=== PATIENT | male | born 1980 | race Caucasian/White ===

== ENCOUNTER 2017-04-21 17:31 | Observation (INO) ==
[2017-04-21] MEDS ORDERED: DUONEB (A & A) INH ONE (18:19)
[2017-04-21] MEDS ORDERED: SOLU-MEDROL IV ONE (18:19)
--- NOTE | 2017-04-21 18:26 | PROVIDER DOCUMENTATION ---
This chart was entered by Esme Garza Scribe, acting as scribe for Catrina Salas CRNP. HPI-Respiratory General - General Chief Complaint: Asthma Attack Stated Complaint: RESP. DISTRESS Time Seen by Provider: 04/21/17 18:17 Source: patient Allergies/Adverse Reactions: Patient Allergies Allergy/AdvReac Type Severity Reaction Status Date / Time No Known Allergies Allergy Verified 11/11/15 04:58 Home Medications: Home Medication List Medication Instructions Recorded Confirmed Last Taken Type Albuterol Sulfate Inhaler 1 puff IH DIRECTED 11/11/15 04/21/17 04/21/17 16: 30 History [Ventolin Hfa] Budesonide [Pulmicort] 0.5 mg INH RTBID #28 neb 11/11/15 04/21/17 04/21/17 16: 30 Rx Buprenorphine HCl/Naloxone HCl 1 each SL BID 11/11/15 04/21/17 1 Day Ago History [Suboxone 8 mg/2 mg Sl Film] Ibuprofen 800 mg PO TID PRN 11/11/15 04/21/17 2 Days Ago History Lorazepam [Ativan] 2 mg PO DAILY 11/11/15 04/21/17 1 Day Ago History Methocarbamol [Robaxin] 750 mg PO TID 11/11/15 04/21/17 2 Days Ago History Albuterol 2.5MG/Ipratrop 0.5MG 3 ml INH Q6H PRN PRN #1 pkg 04/21/17 Unknown Rx [Duoneb] Methylprednisolone [Medrol Dosepak] 4 mg PO DIRECTED #1 package 04/21/17 Unknown Rx - History of Present Illness-Resp Nature of Presenting Problem: 36 year old M presents to the ED with a cc of shortness of breath x3 days. Pt states that he has a long history of asthma. Pt states that his breathing treatments are not helping. Severity in ED: reports: mild Onset/Duration: reports: 3 days ago Timing: reports: still present Cough Quality/Degree: reports: no cough Current Respiratory Medication Therapy: Initiated see nurses note Associated Symptoms: reports: shortness of breath Similar Symptoms Previously?: No Recently seen or treated by another doctor?: No Review of Systems - Adult - REVIEW OF SYSTEMS - ADULT Constitutional: reports: see HPI. denies: chills, fever, fatique Eyes: reports: see HPI. denies: discharge, blurred vision, double vision Ears, Nose, Mouth & Throat: reports: see HPI. denies: ear pain, sinus problem, mouth/dental pain, throat swelling Cardiovascular: reports: see HPI. denies: chest pain, irregular heart rate, palpitations, syncope Respiratory: reports: see HPI, shortness of breath. denies: cough, dyspnea on exertion, wheezing Gastrointestinal: reports: see HPI. denies: abdominal pain, diarrhea, nausea, vomiting Genitourinary: reports: see HPI. denies: dysuria, hematuria, hesitency, incontinence, urgency Musculoskeletal: reports: see HPI. denies: bone pain, joint pain, muscle aches , neck pain Integumentary: reports: see HPI. denies: hives, itching, rash, skin thickening Neurological: reports: see HPI. denies: ataxia, paresthesia, slurred speech, tremors Psychiatric: reports: see HPI. denies: anxiety, depression, emotional problems , insomnia, panic attacks, suicidal thoughts Past History - Adult - PAST MEDICAL HISTORY-ADULT Review of Records: reports: Old Records Reviewed, Nursing Assessment Review, Medications Reviewed, Social history reviewed & non-contributory. Major Childhood Illnesses: reports: denies history Cardiovascular: reports: denies history Respiratory: reports: asthma Gastrointestinal: reports: denies history Obstetrical/Gynecological: reports: denies history Genitourinary: reports: denies history Musculoskeletal: reports: denies history Neurological: reports: denies history Endocrine/Immune: reports: denies history Other Conditions: reports: denies history - FAMILY HISTORY Family History: reviewed, not pertinent - SOCIAL HISTORY Smoking: cigarettes, greater than 1 pack/day Provider spent 3-5 mins advising pt. on dangers of tobacco.: Discussed the need to stop smoking. Physical Exam-General - PHYSICAL EXAM-ADULT Initial Vital Signs Reviewed: Yes - CONSTITUTIONAL General Appearance: alert, mild distress, thin. negative: anxious, lethargic, slow to respond, obtunded, combative - EYES Eyes: PERRL/EOMI, pink conjunctivae. negative: conjuctival exudate, photophobia , subconjunctival hemorrhage - HEAD, EARS, NOSE, MOUTH & THROAT HENMT: normocephalic/atraumatic, moist mucous membranes. negative: angioedema, frontal tenderness, maxillary tenderness - NECK Neck: non-tender, full range of motion, supple. negative: lymphadenopathy, trachial deviation, thyromegaly - RESPIRATORY Respiratory: wheezing (bilaterally inspiratory and expiratory) - CARDIOVASCULAR Cardiovascular: normal peripheral pulses, regular rate, rhythm, no edema, no JVD , no murmur. negative: extra beats, friction rub, irregularly irregular - GASTROINTESTINAL (ABDOMEN) Abdominal Exam: normal bowel sounds, non tender, soft. negative: distended, guarding, rigid, rebound, tenderness, hernia, mass - LYMPHATIC Lymphatic: no adenopathy. negative: axilla node tender, cervical node tenderness - MUSCULOSKELETAL Back Exam: normal inspection, no CVA tenderness, no vertebral tenderness. negative: ecchymosis, swelling, vertebral tenderness Extremity: normal range of motion, non-tender, normal gait, normal inspection. negative: deformity, erythema, inflammation, swelling, tenderness Peripheral Pulses: radial (R): 2+, radial (L): 2+ - SKIN Integumentary: normal color, normal turgor, warm/dry. negative: cyanosis, diaphoresis, ecchymosis, erythema, jaundice, mottled, pallor, petechiae, purpura , rash, swelling, tenderness - NEUROLOGIC Neurologic: grossly normal, no motor/sensory deficits. negative: facial droop, focal weakness, motor weakness, sensory deficit - PSYCHIATRIC Psych/Mental Status: normal mood/affect, normal thought content, normal thought process, oriented x 3. negative: anxious, paranoid, tearful Progress - PLAN OF CARE/RESULTS Progress/Plan/Lab Results: Vital Signs - 8 hr 04/21/17 17:35 04/21/17 18:43 Temperature 97.0 F L Pulse Rate 89 86 Respiratory Rate 22 18 Blood Pressure 107/70 O2 Sat by Pulse Oximetry 91 L 90 L Orders Category Date Time Status Saline Loc NOW Care 04/21/17 18:19 Active CHEST-2 VIEWS [RAD] Stat Exams 04/21/17 18:20 Completed Albuterol 2.5MG/Ipratrop 0.5MG [Duoneb (A & A)] Med 04/21/17 18:19 Discontinued 6 ml INH NOW ONE Methylprednisolone Sod Succ [Solu-Medrol] Med 04/21/17 18:19 Discontinued 125 mg IV NOW ONE Aerosol Treatments Routine Oth 04/21/17 18:19 Active Aerosol Treatments Stat Oth 04/21/17 18:19 Active Discussed results and plan of care with patient. Patient agrees with plan and verbalizes understanding. - XRAY 1 XRAY Study: Chest XRAY Interpretation: The lungs are very hyperexpanded but no pneumonia per radiology Departure - Departure Date of Disposition Decision: 04/21/17 Time of Disposition Decision: 19:26 DIAGNOSIS: Asthma exacerbation Disposition: HOME 01 Certified Medical Emergency: Emergent Condition: Stable Additional Freetext Instructions: Follow up with primary care physician Stop smoking Take medications as directed Return to ED for any concerns or worsening of symptoms ED Follow Up Instructions: You have been treated by a care provider in the Emergency Department. These instructions are being provided to you so you can have an understanding of how to care for yourself upon discharge. Upon discharge from the Emergency Department, you are responsible for making arrangements for follow-up care by a physician of your choice. Take all prescribed medications as directed. Return to the Emergency Department immediately for any new or worsening symptoms. You may call the Physician Referral phone number at [phone] to obtain a list of Physicians who are taking new patients. Prescriptions: Albuterol 2.5MG/Ipratrop 0.5MG [Duoneb] 3 ml INH Q6H PRN PRN #1 pkg PRN Reason: Shortness Of Breath Methylprednisolone [Medrol Dosepak] 4 mg PO DIRECTED #1 package Work Excuses: Return to School/Parent Work Discharge Education: Asthma, Adult - Critical Care Note This patient required my direct & personal management of CC.: No Attestation - Physician/ SANDEEP Attestation Patient care was provided by Advanced Practice Provider:: Yes Advanced Practice Provider:: Catrina Salas (The physician is on site and available for consultation but did not have face to face contact with the patient. ) Advanced Practice Provider documentation review:: The Mid-level provider documentation, treatment plan and medical decision making was reviewed by the physician who agrees with all treatment and medical decision making by the MLP. This chart was documented by the indicated scribe, (Esme Garza Scribe) and accurately reflects the services I performed and decisions made by me, Catrina Salas CRNP, as attested by the provider's signature.
--- NOTE | 2017-04-21 18:39 | Diag Imaging Result Doc PS360 ---
EXAM: CHEST-2 VIEWS HISTORY: SOB TECHNIQUE: COMPARISON: 11/11/2015 FINDINGS: The lungs are hyperexpanded. There is an increased AP diameter to the chest. Heart is not enlarged. The pulmonary vessels are small. No pneumonia. No pleural effusions. IMPRESSION: Hyperexpanded lungs, but no pneumonia. Electronically signed by Tereso Christensen 04/21/2017 6:36 PM
[2017-04-21 20:10] LABS: BE 1.9 mmoll (-3.0-3.0); BLOOD TYPE ARTERIAL; DRAW SITE R RADIAL; METHB 1.1 % (0.0-1.5); O2(CT) 19.8 mL/dL (15.0-23.0); PCO2(98.6) 31 mmHg (35-45); SAMPLE BLOOD; SAO2 91.9 % (95.0-100.0); THB 15.9 g/dL (11.5-17.4)
[2017-04-21 20:13] LABS: PO2(98.6) 48 mmHg (60-100)
[2017-04-21 20:14] LABS: ALLEN TEST YES; MODALITY ROOM AIR
[2017-04-21] MEDS ORDERED: MEDROL PO SCH (20:45)
[2017-04-21] MEDS: LEVAQUIN 750 MG/D5W 750 MG/150 ML IVPB IV SCH (20:45)
[2017-04-21 21:03] LABS: MANUAL DIFF NEEDED? NO
[2017-04-21 21:04] LABS: BASO% 0.2 % (0.0-0.8); EOS# 0.25 X1000 (0.0-0.7); EOS% 1.8 % (0.0-10.0); HEMATOCRIT 45.4 % (42.0-52.0); HEMOGLOBIN 15.1 g/dL (14.0-18.0); IMM GRAN# 0.02 X1000 (0.0-0.04); IMM GRAN% 0.1 % (0.0-0.5); LYMPH# 1.61 X1000 (1.2-3.4); LYMPH% 11.7 % (20.5-51.1); MCH 29.3 PG (27-31); MCHC 33.3 g/dL (33-37); MCV 88.2 FL (81-99); MONO# 0.88 X1000 (0.11-0.59); MONO% 6.4 % (1.7-9.3); MPV 11.3 FL (7.4-10.4); NEUT% 79.8 % (42.2-75.2); PLT 181 X1000 (130-400); RBC 5.15 XMIL (4.7-6.1)
[2017-04-21 21:31] LABS: AGAP 10; ALBUMIN 4.2 g/dL (3.5-5.0); ALKALINE PHOSPHATASE 73 U/L (32-122); BUN 8 mg/dL (8-22); CHLORIDE 100 mmol/L (98-107); COSMO 272; GOT 12 U/L (10-34); GPT 9 U/L (10-44); POTASSIUM 3.7 mmol/L (3.5-5.1); SODIUM 136 mmol/L (136-145); TCO2 26 mmol/L (25-35); TOTAL PROTEIN 7.4 g/dL (6.3-8.3)
[2017-04-21] MEDS ORDERED: SOLU-MEDROL ONE (21:40)
[2017-04-21] MEDS: DUONEB (A & A) INH SCH (22:56)
[2017-04-22] MEDS: DUONEB (A & A) INH SCH ×6 (04:02→22:59)
[2017-04-22] MEDS: SOLU-MEDROL IV SCH ×3 (05:54→23:23)
[2017-04-22] MEDS ORDERED: DUONEB (A & A) INH PRN (08:13)
--- NOTE | 2017-04-22 09:32 | HISTORY AND PHYSICAL ---
PRIMARY CARE PHYSICIAN: None. CHIEF COMPLAINT: Shortness of breath. HISTORY OF PRESENT ILLNESS: The patient reports 2 days prior to arrival he began having shortness of breath and nonproductive cough. He does have a history of asthma. He reports he usually has one episode of severe asthma a year. He takes albuterol inhaler and nebulizers p.r.n. but nothing preventatively daily. He also continues to smoke a half a pack a day and has done so for the last 15 years. He denies any fever or chills. He denies any additional symptoms. He will be admitted for further treatment and evaluation. PAST MEDICAL HISTORY: 1. Asthma. 2. Sleep apnea. 3. Chronic back pain. 4. Anxiety. PAST SURGICAL HISTORY: Start teeth extraction. SOCIAL HISTORY: Patient smokes a half a pack a day and has done so for 15 years. He reports occasional alcohol use. He denies any drug use. FAMILY HISTORY: Positive for coronary artery disease with both of his parents. ALLERGIES: No known drug allergies. MEDICATIONS: We are planning to verify this with the pharmacy that he uses as well due to him reporting he has no primary care. 1. Albuterol p.r.n. wheezing. 2. Robaxin 750 mg p.o. t.i.d. 3. Ativan 2 mg p.o. daily. 4. Ibuprofen 800 mg p.o. t.i.d. p.r.n. 5. Suboxone 8 mg b.i.d. 6. DuoNeb q.6 hours p.r.n. wheezing. REVIEW OF SYSTEMS: Ten-point review of systems negative other than previously stated in the HPI. LABORATORIES AND DIAGNOSTICS: CBC: White count 13.76, hemoglobin and hematocrit 15.1 and 45.4, platelets 181,000. BMP: Sodium 136, potassium 3.7, chloride 100, CO2 of 26. BUN 8, creatinine 0.6, glucose 128. LFTs within normal limits. ABGs: pH 7.5, pCO2 of 31, PO2 of 48, bicarb 26.8, oxyhemoglobin 88.8. Chest x-ray shows hyperexpanded lungs. No other abnormality. PHYSICAL EXAMINATION: VITAL SIGNS: Temperature 97.6 degrees, pulse 88, respirations 18, blood pressure 123/61, O2 saturation 98% on 4 L per nasal cannula. HEENT: Normocephalic, atraumatic. Mucous membranes moist. NECK: Supple. No JVD. CHEST: Bilateral breath sounds with moderate wheezing. No accessory muscle use noted. CARDIOVASCULAR: Normal S1, S2. ABDOMEN: Abdomen is soft, nontender. EXTREMITIES: No evidence of clubbing, cyanosis, or edema. NEUROLOGIC: Alert and oriented x4. No neurological deficits noted. ASSESSMENT AND PLAN: 1. Asthma exacerbation. We will continue with steroids and DuoNebs q.4-6 hours as well as q. 2 hours p.r.n. and oxygen supportively. 2. Chronic pain. We will give Robaxin t.i.d. and will verify his other medications with the pharmacy. Further orders pending physician evaluation. Patient seen and Examined, I agree with Shruthi Smith assessment and plan, Dr Saleh Dictated by ADAN Hebert for Willian Cowan MD cc: ADAN Hebert MD [facility]
[2017-04-22] MEDS ORDERED: SUBOXONE 8 MG/2 MG SL ONE (13:18)
[2017-04-22] MEDS: ROBAXIN PO SCH ×2 (13:28→20:53)
[2017-04-22] MEDS: LEVAQUIN 750 MG/D5W 750 MG/150 ML IVPB IV SCH (20:53)
[2017-04-22] MEDS: SUBOXONE 8 MG/2 MG SL SCH (20:54)
[2017-04-22] MEDS ORDERED: ATIVAN PO SCH (21:00)
[2017-04-23] MEDS: DUONEB (A & A) INH SCH ×2 (03:16→07:44)
[2017-04-23] MEDS: SOLU-MEDROL IV SCH (05:59)
[2017-04-23] MEDS: ROBAXIN PO SCH ×2 (05:59→12:48)
[2017-04-23 06:42] LABS: EOS# 0.01 X1000 (0.0-0.7); EOS% 0.1 % (0.0-10.0); HEMATOCRIT 45.7 % (42.0-52.0); HEMOGLOBIN 14.8 g/dL (14.0-18.0); IMM GRAN# 0.02 X1000 (0.0-0.04); IMM GRAN% 0.1 % (0.0-0.5); LYMPH# 0.82 X1000 (1.2-3.4); LYMPH% 5.3 % (20.5-51.1); MANUAL DIFF NEEDED? YES; MCH 28.8 PG (27-31); MCHC 32.4 g/dL (33-37); MCV 89.1 FL (81-99); MONO# 0.56 X1000 (0.11-0.59); MONO% 3.6 % (1.7-9.3); MPV 12.1 FL (7.4-10.4); NEUT% 90.9 % (42.2-75.2); PLT 172 X1000 (130-400); RBC 5.13 XMIL (4.7-6.1)
[2017-04-23 06:59] LABS: AGAP 12; BUN 15 mg/dL (8-22); CALCIUM 8.9 mg/dL (8.8-10.2); CHLORIDE 101 mmol/L (98-107); COSMO 277; POTASSIUM 4.5 mmol/L (3.5-5.1); SODIUM 137 mmol/L (136-145); TCO2 24 mmol/L (25-35)
[2017-04-23 07:22] LABS: BANDS 1 % (0-1); LYMPHS 3 % (21-51); MONO 1 % (1-9)
[2017-04-23] MEDS: SUBOXONE 8 MG/2 MG SL SCH (09:07)
[2017-04-23] MEDS ORDERED: ALBUTEROL NEB INH PRN (11:08)
[2017-04-23] MEDS ORDERED: MEDROL PO ONE (11:15)
[2017-04-23 11:19] VITALS: BP 106/58
[2017-04-23] MEDS ORDERED: MEDROL PO SCH ×3 (13:00→21:00)
--- NOTE | 2017-04-24 04:49 | DISCHARGE SUMMARY ---
ADMISSION DATE: 04/21/2017 DISCHARGE DATE: 04/23/2017 PRIMARY CARE PHYSICIAN/FAMILY PHYSICIAN: Ashli Issa MD. ADMISSION DIAGNOSES: 1. Asthma exacerbation. 2. Chronic pain. DISCHARGE DIAGNOSES: 1. Asthma exacerbation, resolved. 2. Chronic pain. 3. Sleep apnea. 4. History of anxiety. SUMMARY OF FINDINGS: This is a 36-year-old male who presents with a 2-day history of shortness of breath and a nonproductive cough. States that he usually has 1 episode of severe asthma a year. Takes an albuterol inhaler and nebulizers p.r.n. but nothing preventatively daily. He also continues to smoke a half a pack of cigarettes and has done so for the past 15 years. He was admitted, placed on steroids and DuoNeb routinely as well as q.2 hours p.r.n., O2 per protocol. He is much improved today, saturating 94% on room air. States he is feeling much better and so it is felt that he can safely be discharged home today. He will continue home medications of Suboxone 8 mg/2 mg 1 sublingually b.i.d., Ativan 2 mg p.o. daily, Robaxin 750 mg p.o. t.i.d. He will continue his albuterol nebulizers q.4 hours p.r.n. and DuoNeb q.6 hours p.r.n., 1 package with 1 refill, his Ventolin inhaler as directed, ibuprofen 800 mg p.o. t.i.d., and a Medrol Dosepak to take as directed, #1 package with no refills. FOLLOWUP: He will need to follow up with his primary care physician in 1-2 weeks. DISCHARGE INSTRUCTIONS: We discussed smoking cessation with this patient and he verbalized understanding. A 35 minute discharge. Dictated by ADAN Malik for Willian Cowan MD cc: ADAN Malik MD Tiffany Hendricks, MD
[2017-04-24] MEDS ORDERED: MEDROL PO SCH (09:00)
[2017-04-25] MEDS ORDERED: MEDROL PO SCH (21:00)
== END 2017-04-23 14:30 | disposition home or self-care (01) ==
LOC: P.MEDSURG 17:31 → P.ED 17:31 → SUATTDRO 17:32
PROVIDERS: ATTEND Internal Medicine

== ENCOUNTER 2019-04-05 04:32 | Inpatient (IN) ==
[2019-04-05] MEDS ORDERED: DUONEB (A & A) INH ONE ×2 (04:38→07:56)
[2019-04-05] MEDS ORDERED: PREDNISONE PO ONE (04:38)
--- NOTE | 2019-04-05 04:41 | PROVIDER DOCUMENTATION ---
HPI-General Adult - General Chief Complaint: Asthma Attack Stated Complaint: Asthma Time Seen by Provider: 04/05/19 04:36 Source: patient Allergies/Adverse Reactions: Patient Allergies Allergy/AdvReac Type Severity Reaction Status Date / Time latex Allergy ITCHING Verified 04/05/19 04:49 Home Medications: Home Medication List Medication Instructions Recorded Confirmed Last Taken Type Albuterol Sulfate Inhaler 2 puff IH DIRECTED PRN 11/11/15 04/05/19 07/06/18 01:00 History [Ventolin Hfa] Buprenorphine HCl/Naloxone HCl 1 film SL BID 01/24/19 04/05/19 Unknown History [Suboxone 8 mg/2 mg Sl Film] Dextroamphetamine/Amphetamine 50 mg PO DAILY 01/24/19 04/05/19 Unknown History [Mydayis ER 50 mg Capsule] Ibuprofen 800 mg PO BID PRN 01/24/19 04/05/19 Unknown History Lorazepam 2 mg PO DAILY 01/24/19 04/05/19 Unknown History Methocarbamol 1 tab PO TID 01/24/19 04/05/19 Unknown History Albuterol 2.5MG/Ipratrop 0.5MG 3 ml INH Q6H PRN PRN 04/05/19 04/05/19 Unknown History [Duoneb (A & A)] - History of Present Illness -Gen Adult Nature of Presenting Problems: Pt presents with asthma exacerbation, x 1 day, says the humidity/air triggers it, mild cough, active smoker, tried albuterol inhaler at home with minimal relief, pt denies f/c, shields, cp, ap, n/v/d. Pt is lying in bed in no acute distress. Location of Pain/Injury: reports: none Pain Radiation: reports: no radiation Quality of Pain: reports: none Severity: reports: mild Onset/Duration: reports: 24 hours ago Timing: reports: still present Context/Activities at Onset: reports: none Modifying Factors: improves with: nothing Associated Symptoms: reports: cough, shortness of breath Similar Symptoms Previously?: Yes Recently seen or treated by another doctor?: No Review of Systems - Adult - REVIEW OF SYSTEMS - ADULT Constitutional: reports: no symptoms reported Eyes: reports: no symptoms reported Ears, Nose, Mouth & Throat: reports: no symptoms reported Cardiovascular: reports: no symptoms reported Respiratory: reports: see HPI Gastrointestinal: reports: no symptoms reported Genitourinary: reports: no symptoms reported Musculoskeletal: reports: no symptoms reported Integumentary: reports: no symptoms reported Neurological: reports: no symptoms reported Psychiatric: reports: no symptoms reported Endocrine: reports: no symptoms reported Hematologic/Lymphatic: reports: no symptoms reported Allergic/Immunologic: reports: no symptoms reported All Other Systems: Reviewed and Negative Past History - Adult - PAST MEDICAL HISTORY-ADULT Review of Records: reports: Old Records Reviewed, Nursing Assessment Review, Medications Reviewed, Social history reviewed & non-contributory. Major Childhood Illnesses: reports: denies history Cardiovascular: reports: denies history Respiratory: reports: asthma (Has been intubated in the past), pneumonia Gastrointestinal: reports: denies history Obstetrical/Gynecological: reports: denies history Genitourinary: reports: denies history Musculoskeletal: reports: denies history Neurological: reports: denies history Psychiatric: reports: anxiety Endocrine/Immune: reports: denies history Other Conditions: reports: denies history, other (Chronic pain, opioid dependence) - PRIOR SURGERIES/PROCEDURES Surgical/Procedure History: reports: none - IMMUNIZATION STATUS Childhood Immunizations: UTD Flu Vaccine: NUTD - FAMILY HISTORY Family History: reviewed, not pertinent Physical Exam-General - PHYSICAL EXAM-ADULT Initial Vital Signs Reviewed: Yes - CONSTITUTIONAL General Appearance: appears well - EYES Eyes: PERRL/EOMI - HEAD, EARS, NOSE, MOUTH & THROAT HENMT: normal ENT inspection - NECK Neck: normal inspection - RESPIRATORY Respiratory: respiratory distress (mild), wheezing - CARDIOVASCULAR Cardiovascular: regular rate, rhythm - GASTROINTESTINAL (ABDOMEN) Abdominal Exam: normal bowel sounds, non tender, soft - LYMPHATIC Lymphatic: no adenopathy - MUSCULOSKELETAL Back Exam: normal inspection Extremity: normal range of motion - SKIN Integumentary: normal color - NEUROLOGIC Neurologic: grossly normal - PSYCHIATRIC Psych/Mental Status: normal mood/affect Progress - PLAN OF CARE/RESULTS Progress/Plan/Lab Results: Orders Category Date Time Status Albuterol 2.5MG/Ipratrop 0.5MG [Duoneb (A & A)] Med 04/05/19 04:38 Once 9 ml INH NOW ONE Prednisone Med 04/05/19 04:38 Once 60 mg PO NOW ONE Aerosol Treatments Routine Oth 04/05/19 04:38 Ordered Aerosol Treatments Stat Oth 04/05/19 04:38 Ordered Result Diagrams: 04/05/19 05:57 Departure - Departure Date of Disposition Decision: 04/05/19 Time of Disposition Decision: 06:20 DIAGNOSIS: Asthma exacerbation Qualifiers: Asthma severity: moderate Asthma persistence: persistent Qualified Code(s): J45.41 - Moderate persistent asthma with (acute) exacerbation Disposition: ADMITTED INPATIENT 09 Certified Medical Emergency: Emergent Condition: Stable Referrals and Follow-Ups: None,PCP [NON-STAFF PROVIDER] - - Critical Care Note This patient required my direct & personal management of CC.: No Attestation - Physician/ SANDEEP Attestation Patient care was provided by Advanced Practice Provider:: No The physician spent face to face time with patient:: Yes Advanced Practice Provider documentation review:: Supervising physician onsite and consulted in the evaluation and care of this patient. The physician did have a face to face encounter with the patient.
[2019-04-05] MEDS ORDERED: MAGNESIUM SULFATE 2 GM/S.W.I. 2 GM/50 ML IVPB IV ONE (05:07)
[2019-04-05] MEDS ORDERED: ATIVAN IV ONE (05:07)
[2019-04-05] MEDS ORDERED: EPINEPHRINE IM ONE (05:07)
[2019-04-05] MEDS ORDERED: ATIVAN ONE (05:11)
[2019-04-05] MEDS ORDERED: EPINEPHRINE ONE (05:11)
[2019-04-05 05:46] LABS: ALLEN TEST YES; BE -3.6 mmoll (-3.0-3.0); BLOOD TYPE ARTERIAL; HCO3-(ACT) 22.1 mmoll (20.0-26.0); METHB 1.4 % (0.0-1.5); O2(CT) 20.9 mL/dL (15.0-23.0); PO2(98.6) 114 mmHg (60-100); SAMPLE BLOOD; SAO2 99.2 % (95.0-100.0); THB 15.4 g/dL (11.5-17.4)
[2019-04-05 05:47] LABS: MODALITY HIGH FLOW NASAL CAN; PCO2(98.6) 67 mmHg (35-45)
[2019-04-05 06:10] LABS: BASO# 0.04 X1000 (0.0-0.2); BASO% 0.3 % (0.0-0.8); EOS# 0.86 X1000 (0.0-0.7); EOS% 5.9 % (0.0-10.0); HEMATOCRIT 44.7 % (42.0-52.0); HEMOGLOBIN 14.8 g/dL (14.0-18.0); IMM GRAN# 0.03 X1000 (0.0-0.04); IMM GRAN% 0.2 % (0.0-0.5); LYMPH# 1.95 X1000 (1.2-3.4); LYMPH% 13.3 % (20.5-51.1); MCH 28.8 PG (27-31); MCHC 33.1 g/dL (33-37); MONO# 0.75 X1000 (0.11-0.59); MONO% 5.1 % (1.7-9.3); MPV 11.3 FL (7.4-10.4); NEUT# 11.04 X1000 (1.4-6.5); NEUT% 75.2 % (42.2-75.2); PLT 184 X1000 (130-400); RBC 5.14 XMIL (4.7-6.1); RDW 15.1 % (11.5-14.5); WBC 14.67 X1000 (4.8-10.8)
[2019-04-05 06:28] LABS: AGAP 13; ALB/GLOB RATIO 1.3; ALBUMIN 4.3 g/dL (3.5-5.0); ALKALINE PHOSPHATASE 85 U/L (32-122); BUN 6 mg/dL (8-22); CALCIUM 8.4 mg/dL (8.8-10.2); CHLORIDE 102 mmol/L (98-107); COSMO 278; CREATININE 0.7 mg/dL (0.7-1.2); ESTIMATED GFR > 60; GLUCOSE 150 mg/dL (70-104); GOT 26 U/L (10-34); GPT 22 U/L (10-44); POTASSIUM 3.9 mmol/L (3.5-5.1); SODIUM 139 mmol/L (136-145); TCO2 24 mmol/L (25-35); TOTAL BILIRUBIN 0.33 mg/dL (0.20-1.00); TOTAL PROTEIN 7.5 g/dL (6.3-8.3)
--- NOTE | 2019-04-05 06:44 | Diag Imaging Result Doc PS360 ---
CHEST-1 VIEW - 04/05/2019 INDICATION: sob COMPARISON: 01/25/2019 FINDINGS: Lungs are hyperexpanded compatible with COPD. Heart size and pulmonary vascularity are normal. No infiltrates or edema. No large pleural effusion. IMPRESSION: COPD. Electronically signed by Dakota Langford 04/05/2019 6:42 AM
[2019-04-05 07:42] LABS: ALLEN TEST YES; BE -1.7 mmoll (-3.0-3.0); BLOOD TYPE ARTERIAL; HCO3-(ACT) 23.6 mmoll (20.0-26.0); METHB 1.2 % (0.0-1.5); O2(CT) 20.8 mL/dL (15.0-23.0); PO2(98.6) 127 mmHg (60-100); SAMPLE BLOOD; SAO2 99.7 % (95.0-100.0); THB 15.1 g/dL (11.5-17.4)
[2019-04-05 08:10] LABS: MODALITY HIGH FLOW NASAL CAN; PCO2(98.6) 52 mmHg (35-45)
[2019-04-05] MEDS ORDERED: DUONEB (A & A) INH PRN (09:14)
[2019-04-05] MEDS ORDERED: VENTOLIN HFA INH PRN (09:14)
[2019-04-05] MEDS ORDERED: ATIVAN PO SCH (09:14)
[2019-04-05] MEDS ORDERED: MOTRIN PO PRN (09:14)
[2019-04-05] MEDS: SOLU-MEDROL IV SCH ×2 (10:03→16:58)
[2019-04-05] MEDS ORDERED: NS 500 ML ONE (10:17)
[2019-04-05] MEDS ORDERED: DIPRIVAN 1% 1,000 MG/100 ML BOTTLE ONE (10:20)
[2019-04-05] MEDS ORDERED: DIPRIVAN 1% ONE (10:22)
[2019-04-05] MEDS ORDERED: QUELICIN (DOSE) ONE (10:23)
[2019-04-05] MEDS: ROBAXIN PO SCH ×3 (10:24→16:33)
[2019-04-05] MEDS: SUBOXONE 8 MG/2 MG SL SCH ×2 (10:25→21:30)
[2019-04-05] MEDS: DUONEB (A & A) INH SCH ×4 (10:41→23:03)
[2019-04-05] MEDS: DIPRIVAN 1% 1,000 MG/100 ML BOTTLE IV SCH ×5 (10:43→21:32)
--- NOTE | 2019-04-05 10:46 | Diag Imaging Result Doc PS360 ---
CHEST-PORTABLE - 04/05/2019 10:35 AM INDICATION: intubation COMPARISON: 5:43 AM FINDINGS: There is an endotracheal tube in good position at T2-T3. Lungs are hyperexpanded but clear. Heart size is normal. No pneumothorax or pleural effusion. IMPRESSION: Good endotracheal tube placement. Electronically signed by Dakota Langford 04/05/2019 10:43 AM
[2019-04-05 11:52] LABS: BILIRUBIN URINE NEGATIVE (NEGATIVE); BLOOD URINE NEGATIVE (NEGATIVE); COLOR YELLOW; GLUCOSE URINE NEGATIVE (NEGATIVE); KETONE URINE NEGATIVE (NEGATIVE); LEUKOCYTES URINE NEGATIVE (NEGATIVE); NITRITE URINE NEGATIVE (NEGATIVE); PROTEIN URINE TRACE mg/dL (NEGATIVE); SP GRAVITY URINE 1.018; TURBIDITY URINE CLEAR (CLEAR); URINE SOURCE CATH; UROBILINOGEN URINE NORMAL (NORMAL)
[2019-04-05 11:54] LABS: UR EPITHELIAL CELLS <10 /HPF (<10); URINE BACTERIA NEGATIVE /HPF; URINE RBC <10 /HPF (<10); URINE WBC <10 /HPF (<10)
--- NOTE | 2019-04-05 13:03 | HISTORY AND PHYSICAL ---
PRIMARY CARE PHYSICIAN: Marilee Patrick CHIEF COMPLAINT: 24 hour history of asthma exacerbation triggered by humidity and air with mild cough, minimal relief from albuterol inhaler at home, and is an active smoker. HISTORY OF PRESENTING ILLNESS: This is a 38-year-old male who presented to [facility] after a one day history of an asthma exacerbation. He states that the humidity and air triggered the exacerbation with a mild cough. He tried his albuterol inhaler at home with minimal relief, and continues to be a half a pack a day smoker. When he arrived, his white blood cell count was 14.67. ABG with a pH of 7.20, pCO2 67, PO2 114, and this was on high-flow nasal cannula at 60%. The patient refused BiPAP. Repeated blood gases 2 hours later with improvement showing a pH of 7.30, pCO2 of 52, and PO2 127 on the same high-flow nasal cannula FiO2 60%. He is saturating 99% at this time. His chest x-ray showed COPD so he is going to be admitted to the intensive care unit for further evaluation and treatment. PAST MEDICAL HISTORY: Allergic rhinitis, asthma requiring intubation in the past, and chronic pain with opioid dependence. PAST SURGICAL HISTORY: None. FAMILY HISTORY: Reviewed and noncontributory. SOCIAL HISTORY: Currently lives with family. Smokes a half a pack of cigarettes a day. Drinks 1 to 2 beers a month. Denied any illicit drug use. ALLERGIES: Latex. HOME MEDICATIONS: Reviewed and restarted as appropriate. LABORATORY DATA: White blood cell count of 14.67, hemoglobin 14.8, hematocrit 44.7, and platelets 184,000. ABG on arrival with a pH of 7.20, pCO2 67, PO2 114, and bicarb 22.1 on a high-flow nasal cannula at 60% FiO2. Again, he refused BiPAP. Repeat 2 hours later showed a pH of 7.30, pCO2 of 52, PO2 127, bicarb 23.6 on the same high-flow nasal cannula, and FiO2 60%. Sodium 139, potassium 3.9, chloride 102, CO2 24, BUN of 6, creatinine 0.7, and glucose of 150. Chest x-ray showed COPD. REVIEW OF SYSTEMS: He denied any fever, chills, blurred vision, dizziness, or chest pain. He had a mild cough, shortness of breath, wheezing, and increased work of breathing. Denied any abdominal pain, constipation, diarrhea, burning or hurting with urination. PHYSICAL EXAMINATION: VITAL SIGNS: On arrival, he had a temperature of 98.1 degrees, pulse was 130, and respirations 26. After treatment, they calmed down about 5 minutes later to a pulse of 91, respirations of 11, blood pressure 128/79 and saturating 96%, currently 99% on high-flow nasal cannula. GENERAL: This is a 38-year-old male who is sitting up in the bed and answers questions appropriately with mostly yes and no answers with increased work of breathing noted and shortness of breath while talking so limited the amount of questions that were asked at this time. HEENT: Normocephalic, atraumatic. Normal ENT inspection. Oropharynx and nares are clear. EYES: Pupils are equal, round, and reactive to light and accommodation. Extraocular movements are intact. NECK: Normal inspection. Normal range of motion. LUNGS: Wheezing throughout entire posterior lung devi. Equal lung expansion. Chest wall movement noted. Some accessory muscle use noted at times, but not consistently with some increased work of breathing that has improved. ABDOMEN: Soft, nontender, and nondistended. Bowel sounds are present x4 quadrants. MUSCULOSKELETAL: 5/5 strength x4 extremities. NEUROLOGICAL: The cranial nerves 2-12 appear grossly intact. ASSESSMENT: 1. Acute asthma exacerbation. 2. Acute hypercapnic respiratory failure. 3. Leukocytosis. 4. Tobacco abuse. PLAN: He will be admitted to the intensive care unit. We will continue his high-flow oxygen per protocol. DuoNeb q.4 hours and q.2 p.r.n. shortness of breath. He received a prednisone 60 mg p.o. x1 in the emergency room and some epinephrine 0.3 x 1. I am going to start him on Solu- Medrol 80 mg IV q.8 and wean as he improves peak flows and incentive spirometry. Recheck a CBC and BMP in the morning. Place on a regular diet. He was also in the emergency room, and given magnesium 2 g IV x1, Ativan 1 mg IV x1, and 9 mL inhalation of DuoNeb. Further orders after seen by attending. Dictated by ADAN Malik for Alejandro Vásquez MD Addendum: Patient seen and examined by myself. Agree with ADAN note. It reflects my assessment and plan. Patient is being admitted to hospital for acute respiratory failure secondary to asthma exacerbation. Patient looks to be on moderate to severe respiratory distress. His ABG showed respiratory acidosis that improved with Optiflow but he still looks tachypneic. He does not want to use Bipap because it does cause him to breath faster and he was made aware if he continues to be on respiratory distress next step is intubation. He agreed an actually he has been intubated before for same reason. Considering that he continues to deteriorate will intubate him now and consult Pulmonary . An ABG has been ordered two hours after procedure. Will monitor patient closelyl Critical care time of 45 minutes. cc: ADAN Malik MD Aletha Eddison MTDD
[2019-04-05] MEDS ORDERED: ZANTAC IV SCH (13:15)
[2019-04-05 13:26] LABS: ALLEN TEST YES; BE -3.3 mmoll (-3.0-3.0); BLOOD TYPE ARTERIAL; HCO3-(ACT) 22.3 mmoll (20.0-26.0); METHB 1.4 % (0.0-1.5); O2(CT) 21.7 mL/dL (15.0-23.0); O2HB 97.5 % (95.0-99.0); PO2(98.6) 265 mmHg (60-100); SAMPLE BLOOD; SAO2 99.7 % (95.0-100.0); SRATE 15 BPM; THB 15.4 g/dL (11.5-17.4); TVOL 500 mL
[2019-04-05 13:27] LABS: MODALITY VENTILATOR; PCO2(98.6) 68 mmHg (35-45)
[2019-04-05] MEDS: D5 NS 1,000 ML IV SCH (13:46)
[2019-04-05] MEDS: LOVENOX SUBQ SCH (13:46)
[2019-04-05 13:49] LABS: UR AMPHETAMINES QUAL PRESUMPTIVE POSITIVE (NONE DETECT); UR BARBITUATES QUAL NONE DETECTED (NONE DETECT); UR BENZODIAZEPIN QUAL NONE DETECTED (NONE DETECT); UR CANNABINOIDS QUAL PRESUMPTIVE POSITIVE (NONE DETECT); UR COCAINE QUAL NONE DETECTED (NONE DETECT); UR METHADONE QUAL NONE DETECTED (NONE DETECT); UR OPIATES QUAL NONE DETECTED (NONE DETECT); UR OXYCODONE QUAL NONE DETECTED (NONE DETECT); UR PCP QUAL NONE DETECTED (NONE DETECT)
[2019-04-05] MEDS: ZANTAC 50 MG in NS 50 ML IV SCH ×2 (14:50→21:31)
[2019-04-05] MEDS: ZITHROMAX 500 MG/NS 500 MG/250 ML IVPB IV SCH (14:50)
[2019-04-05] MEDS: MORPHINE IV PRN (15:52)
[2019-04-05 16:02] LABS: ALLEN TEST YES; BE -2.6 mmoll (-3.0-3.0); BLOOD TYPE ARTERIAL; HCO3-(ACT) 22.9 mmoll (20.0-26.0); METHB 1.3 % (0.0-1.5); O2(CT) 20.7 mL/dL (15.0-23.0); O2HB 96.9 % (95.0-99.0); PCO2(98.6) 57 mmHg (35-45); PO2(98.6) 146 mmHg (60-100); SAMPLE BLOOD; SAO2 99.4 % (95.0-100.0); TVOL 700 mL; pH(98.6) 7.26 (7.35-7.45)
[2019-04-05 16:03] LABS: MODALITY VENTILATOR
--- NOTE | 2019-04-05 23:34 | PULMONOLOGY CONSULTATION ---
DATE: 04/05/2019 REQUESTING PHYSICIAN: Dr. Hollis. REASON FOR CONSULTATION: Respiratory failure. HISTORY OF PRESENT ILLNESS: Mr. Mcclure is a 38-year-old white male with a long history of asthma, prior asthma exacerbation requiring intubation, ongoing tobacco use, who presented to the emergency room with a 1-day history of increasing shortness of breath. The patient appears to be on no chronic asthma medications except for albuterol when his medication list is reviewed and recent medications that have been filled at the pharmacy are also reviewed. The patient was initiated on treatment in the emergency room and transferred to the ICU. The patient was being observed by the nursing staff when he had progressive increasing work of breathing and actually requested to be intubated due to ongoing distress. The patient was intubated and initiated on mechanical ventilation. He is now sedated. He has mild work of breathing with evidence of prolonged expiratory phase. Peak pressures are less than 20 on current settings. PAST MEDICAL HISTORY/PROBLEM LIST: 1. Asthma with prior intubation. 2. Chronic pain syndrome, currently being managed with Suboxone. 3. Ongoing tobacco use. FAMILY HISTORY: Not immediately available. SOCIAL HISTORY: History of tobacco use, chronic pain use, current and previous urinalysis revealing amphetamines and cannabis. REVIEW OF SYSTEMS: Cannot be obtained. PHYSICAL EXAMINATION: General: Reveals an intubated, white male on mechanical ventilation. Vital signs: Blood pressure 105/66, heart rate 92, respiratory rate 12, oxygen saturation 99%. HEENT: Pupils are equal and reactive. Oropharynx is clear. Neck: Supple. Chest: Reveals markedly diminished breath sounds bilaterally with prolonged expiratory phase. Cardiac: S1, S2. Abdomen: Soft. Extremities: Without edema. LABORATORIES: Arterial blood gas in the emergency room upon presentation pH 7.20, pCO2 of 67, pO2 of 114. Arterial blood gas following intubation, pH 7.20, pCO2 of 68, pO2 of 265. Chest x-ray reveals hyperinflation, but no acute disease. Sodium 139, potassium 3.9, chloride 102, bicarbonate 24, BUN 6, creatinine 0.7. White blood count is 14.67 with an eosinophil percentage of 5.9, with a total eosinophil count of 860. The patient has had an eosinophil percentage as high as 9.6%. IMPRESSION: A 38-year-old with status asthmatic is, acute hypoxemic respiratory failure, acute hypercapnic respiratory failure, ongoing cigarette/tobacco use, cannabis use, who has required intubation for status asthmaticus. Review of medications on admission does not reveal long-term asthma medications. With prior intubation, patient should at a minimum be on a chronic inhaled corticosteroid. If he has failed inhaled corticosteroids, then he should be on other medications to control his eosinophilia. RECOMMENDATIONS: 1. Continue nebulizers and steroids for asthma exacerbation. 2. Continue mechanical ventilation for acute hypercapnic and acute hypoxemic respiratory failure. 3. Routine DVT prophylaxis. 4. Routine gastric acid suppression. 5. We will initiate azithromycin in the event that an atypical organism is driving the current presentation. 6. Smoking cessation will be discussed and recommended. 7. Inhaled corticosteroids will be discussed and recommended. 8. Daily weaning as tolerated given improvement in current pulmonary status. TOTAL TIME: Time spent in Critical care management 1 hour. cc: Yuriy Cloud MD
[2019-04-06] MEDS: SOLU-MEDROL IV SCH ×4 (01:34→23:32)
[2019-04-06] MEDS: DIPRIVAN 1% 1,000 MG/100 ML BOTTLE IV SCH ×9 (01:35→23:33)
[2019-04-06] MEDS: MORPHINE IV PRN ×3 (01:36→16:05)
[2019-04-06] MEDS: D5 NS 1,000 ML IV SCH ×2 (01:37→15:09)
[2019-04-06] MEDS: DUONEB (A & A) INH SCH ×6 (03:39→23:21)
[2019-04-06 04:40] LABS: ALLEN TEST YES; BE 0.9 mmoll (-3.0-3.0); BLOOD TYPE ARTERIAL; HCO3-(ACT) 25.6 mmoll (20.0-26.0); METHB 1.3 % (0.0-1.5); O2(CT) 19.5 mL/dL (15.0-23.0); O2HB 96.1 % (95.0-99.0); PO2(98.6) 96 mmHg (60-100); SAMPLE BLOOD; SAO2 98.8 % (95.0-100.0); SRATE 700 BPM; THB 14.4 g/dL (11.5-17.4); TVOL 12 mL; pH(98.6) 7.33 (7.35-7.45)
[2019-04-06 04:41] LABS: MODALITY VENTILATOR; PCO2(98.6) 53 mmHg (35-45)
[2019-04-06] MEDS: ZANTAC 50 MG in NS 50 ML IV SCH ×3 (05:11→21:52)
[2019-04-06 06:22] LABS: HEMATOCRIT 42.5 % (42.0-52.0); RBC 4.82 XMIL (4.7-6.1); WBC 15.23 X1000 (4.8-10.8)
[2019-04-06 06:23] LABS: BASO# 0.01 X1000 (0.0-0.2); BASO% 0.1 % (0.0-0.8); EOS# 0.01 X1000 (0.0-0.7); EOS% 0.1 % (0.0-10.0); IMM GRAN# 0.03 X1000 (0.0-0.04); IMM GRAN% 0.2 % (0.0-0.5); LYMPH% 6.6 % (20.5-51.1); MCHC 32.9 g/dL (33-37); MCV 88.2 FL (81-99); MONO# 0.51 X1000 (0.11-0.59); MONO% 3.3 % (1.7-9.3); MPV 12.4 FL (7.4-10.4); NEUT# 13.67 X1000 (1.4-6.5); NEUT% 89.7 % (42.2-75.2); PLT 173 X1000 (130-400)
[2019-04-06 06:41] LABS: AGAP 11; BUN 11 mg/dL (8-22); CALCIUM 8.8 mg/dL (8.8-10.2); CHLORIDE 104 mmol/L (98-107); COSMO 279; CREATININE 0.5 mg/dL (0.7-1.2); ESTIMATED GFR > 60; GLUCOSE 140 mg/dL (70-104); POTASSIUM 4.9 mmol/L (3.5-5.1); SODIUM 139 mmol/L (136-145); TCO2 24 mmol/L (25-35)
--- NOTE | 2019-04-06 07:18 | Diag Imaging Result Doc PS360 ---
EXAM: CHEST-PORTABLE HISTORY: Intubated TECHNIQUE: Portable chest COMPARISON: 04/05/2019 FINDINGS: The lungs are well expanded. Endotracheal tube in good position. The heart is not enlarged. The vessels are not distended. There are no infiltrates. No effusion identified. IMPRESSION: Stable chest Electronically signed by Tereso Christensen 04/06/2019 7:16 AM
[2019-04-06 08:11] LABS: BANDS 6 % (0-1); LYMPHS 8 % (21-51); SEGS 86 % (42-75)
[2019-04-06] MEDS ORDERED: SODIUM CHLORIDE 0.9% INJ SCH (08:30)
[2019-04-06] MEDS ORDERED: PROTONIX IV SCH (08:30)
[2019-04-06] MEDS: ROBAXIN PO SCH ×3 (08:40→18:05)
[2019-04-06] MEDS: SUBOXONE 8 MG/2 MG SL SCH ×2 (08:41→21:49)
--- NOTE | 2019-04-06 13:57 | PROGRESS NOTE ---
DATE: 04/06/2019 SUBJECTIVE: Patient is intubated and sedated but is still awake somehow. OBJECTIVE: Vital signs: Temperature 98.1 degrees, heart rate 89, respiratory rate 14, blood pressure 115/61, O2 saturation 97% on mechanical ventilator. General: This is a 38-year-old, male, lying in bed, in no acute distress. Cardiovascular: S1, S2 heard. No murmurs, gallops, or rubs. Regular rate and rhythm. Respiratory: Wheezing is still noted in both pulmonary bases. Patient is not using any accessory muscles or having work of breathing. Abdomen: Soft and nontender to palpation. Bowel sounds present. No organomegaly. Extremities: No clubbing, cyanosis, or edema. Peripheral pulses present in both legs. Neurological: Patient alert and oriented x3. Moves 4 extremities. LABORATORY DATA: Reviewed. ASSESSMENT AND PLAN: 1. Acute hypoxemic, hypercarbic respiratory failure on ventilator. The patient's ABG shows good oxygenation but physical examination discloses still some wheezing, so at this point we will continue with same management and we will try to extubate this patient. Pulmonary following the patient, will follow recommendations. 2. Acute asthma exacerbation. As we mentioned above. We will continue with breathing treatment and also steroids as well. 3. Tobacco abuse. Aware. Patient is using nicotine patch. 4. Disposition. At this point, we will follow recommendations from Dr. Cloud. We will see if he can be extubated tomorrow. cc: Alejandro Vásquez MD MTDD
[2019-04-06] MEDS: ZITHROMAX 500 MG/NS 500 MG/250 ML IVPB IV SCH (14:17)
[2019-04-06] MEDS: LOVENOX SUBQ SCH (14:17)
--- NOTE | 2019-04-06 17:32 | PULMONOLOGY PROGRESS NOTE ---
DATE: 04/06/2019 SUBJECTIVE: The patient is sedated. He appears to be synchronizing well with mechanical ventilation. OBJECTIVE: Vital Signs: The patient has been afebrile for the last 24 hours. Blood pressure 99/60, heart rate 89, respiratory rate 14, oxygen saturation 94%. HEENT: Pupils are equal but sluggish. Oropharynx appears dry. Neck: Supple. Chest: Reveals prolonged expiratory phase with diffuse wheezing. Cardiac: S1-S2. Abdomen: Soft and without hepatosplenomegaly. Extremities: Reveal trace edema. LABORATORIES: Arterial blood gas reveals pH 7.33, pCO2 of 53, PO2 of 96 on 40% FiO2. White blood count 15.23, hemoglobin 14.0, platelet count 173,000. Sodium 139, potassium 4.9, chloride 104, bicarbonate 24, BUN 11, creatinine 0.5, glucose 140. Chest x-ray reveals no acute change with endotracheal tube in good position. IMPRESSION: A 38-year-old with 1. Status asthmaticus. 2. Acute hypoxemic respiratory failure. 3. Acute hypercapnic respiratory failure. 4. Ongoing cigarette/tobacco addiction. 5. Cannabis use. RECOMMENDATIONS: 1. Continue steroids, nebulizers and current antibiotic regimen pending sputum culture results. 2. Continue mechanical ventilation on current settings. 3. Continue DVT prophylaxis. 4. Recommend smoking cessation. 5. Recommend chronic inhaled corticosteroids. This is a 2nd intubation for this patient and he is putting his life at risk if he does not initiate and maintain an anti-inflammatory regimen for his asthma. TIME SPENT: Critical care 30+ minutes. cc: Yuriy Cloud MD
[2019-04-07] MEDS: DUONEB (A & A) INH SCH ×6 (03:01→23:34)
[2019-04-07 04:23] LABS: BLOOD TYPE ARTERIAL; SAMPLE BLOOD
[2019-04-07 04:24] LABS: ALLEN TEST YES; BE 2.9 mmoll (-3.0-3.0); HCO3-(ACT) 27.2 mmoll (20.0-26.0); METHB 1.3 % (0.0-1.5); O2(CT) 19.1 mL/dL (15.0-23.0); O2HB 96.7 % (95.0-99.0); PCO2(98.6) 43 mmHg (35-45); PO2(98.6) 118 mmHg (60-100); SAO2 99.3 % (95.0-100.0); SRATE 12 BPM; THB 13.9 g/dL (11.5-17.4); TVOL 700 mL; pH(98.6) 7.42 (7.35-7.45)
[2019-04-07] MEDS: D5 NS 1,000 ML IV SCH ×2 (04:28→17:57)
[2019-04-07] MEDS: DIPRIVAN 1% 1,000 MG/100 ML BOTTLE IV SCH ×2 (04:28→05:49)
[2019-04-07 04:31] LABS: MODALITY VENTILATOR
[2019-04-07] MEDS: ZANTAC 50 MG in NS 50 ML IV SCH ×3 (05:49→21:26)
[2019-04-07 06:22] LABS: BASO# 0.01 X1000 (0.0-0.2); BASO% 0.1 % (0.0-0.8); EOS# 0.01 X1000 (0.0-0.7); EOS% 0.1 % (0.0-10.0); HEMATOCRIT 41.4 % (42.0-52.0); HEMOGLOBIN 13.4 g/dL (14.0-18.0); IMM GRAN# 0.02 X1000 (0.0-0.04); IMM GRAN% 0.2 % (0.0-0.5); LYMPH# 0.53 X1000 (1.2-3.4); MCH 28.9 PG (27-31); MCHC 32.4 g/dL (33-37); MCV 89.2 FL (81-99); MONO# 0.39 X1000 (0.11-0.59); MPV 12.8 FL (7.4-10.4); NEUT# 12.18 X1000 (1.4-6.5); NEUT% 92.6 % (42.2-75.2); PLT 162 X1000 (130-400); RBC 4.64 XMIL (4.7-6.1); RDW 15.7 % (11.5-14.5); WBC 13.14 X1000 (4.8-10.8)
[2019-04-07 06:28] LABS: AGAP 9; BUN 12 mg/dL (8-22); CALCIUM 8.4 mg/dL (8.8-10.2); CHLORIDE 106 mmol/L (98-107); COSMO 283; CREATININE 0.5 mg/dL (0.7-1.2); ESTIMATED GFR > 60; GLUCOSE 136 mg/dL (70-104); POTASSIUM 4.3 mmol/L (3.5-5.1); SODIUM 141 mmol/L (136-145); TCO2 26 mmol/L (25-35)
[2019-04-07] MEDS: MORPHINE IV PRN (08:25)
[2019-04-07] MEDS: SOLU-MEDROL IV SCH ×3 (08:25→23:29)
[2019-04-07] MEDS: ROBAXIN PO SCH ×3 (08:28→16:51)
[2019-04-07] MEDS: SUBOXONE 8 MG/2 MG SL SCH ×3 (08:28→20:50)
--- NOTE | 2019-04-07 09:29 | Diag Imaging Result Doc PS360 ---
EXAM: CHEST-PORTABLE - 04/07/2019 HISTORY: vent TECHNIQUE: Portable chest COMPARISON: 04/06/2019 FINDINGS: Endotracheal tube remains in place. Heart size is normal. There is stable mild prominence of central vascular markings. There is no consolidation, pleural effusion, or pneumothorax identified. IMPRESSION: No acute changes. Electronically signed by Dylan Hobbs 04/07/2019 9:27 AM
--- NOTE | 2019-04-07 09:36 | PROGRESS NOTE ---
DATE: 04/07/2019 SUBJECTIVE: The patient is intubated and sedated but still awake somehow. As per nursing staff, he has been having profuse greenish lung secretions. OBJECTIVE: Vital Signs: Temperature 98.8 degrees, heart rate 70, respiratory rate 14, blood pressure 102/69, O2 saturation 96% on mechanical ventilator at FiO2 40%. General Examination: This is a 38-year-old, male, lying in bed, in no acute distress. Cardiovascular Examination: S1 and S2 heard. No murmurs, gallops, or rubs. Regular rate and rhythm. Respiratory Examination: Still wheezing noted in both pulmonary bases in both pulmonary devi. Definitely less in comparing with yesterday. Patient is not using any accessory muscles or having work of breathing. Abdomen: Soft. Apparently nontender to palpation. Bowel sounds present. No organomegaly. Extremities: No clubbing, cyanosis, or edema. Peripheral pulses present in both legs. Neurological Examination: The patient is sedated and intubated. Laboratory Data: Reviewed. ASSESSMENT AND PLAN: 1. Acute hypoxemic and hypercapnic respiratory failure. The patient's ABG shows good oxygenation. I think today, we can start weaning off from the ventilator. Pulmonary is involved. We will follow recommendations. 2. Nursing staff also reports profuse greenish lung secretions. For suspicion for any pseudomonal infection, we are going to order cefepime. We are going to repeat a sputum culture. We will do a CT of the chest without contrast and we will see what it shows. 3. Acute asthma exacerbation. We will continue with the antibiotics, intravenous steroids, and breathing treatments as well. 4. Alcohol abuse. Aware. 5. Disposition. We will continue to monitor this patient closely. We will see if we are able to extubate him today. cc: Alejandro Váqsuez MD
[2019-04-07] MEDS: MAXIPIME 1 GM in NS 50 ML IV SCH ×2 (09:42→20:51)
[2019-04-07] MEDS: LOVENOX SUBQ SCH (14:02)
[2019-04-07] MEDS: ZITHROMAX 500 MG/NS 500 MG/250 ML IVPB IV SCH (14:03)
--- NOTE | 2019-04-07 14:10 | PULMONOLOGY PROGRESS NOTE ---
DATE: 04/07/2019 SUBJECTIVE: The patient's sedation was held. He is now arousable to alert. His work of breathing has resolved. He no longer has prolonged expiratory phase. OBJECTIVE: Vital Signs: The patient has been afebrile for the last 24 hours. Blood pressure 119/66, heart rate 77, respiratory rate 14, oxygen saturation 96%. HEENT: Pupils are equal and reactive. Oropharynx is clear. Neck is supple. Chest reveals good air entry bilaterally with scattered rhonchi. Cardiac Examination: S1-S2. Abdomen is soft without hepatosplenomegaly. Extremities: Without edema. Laboratories: White blood count 13.14, hemoglobin 13.4, platelet count 162,000. Chest x-ray reveals possible bronchial casts in the left upper lobe with bronchial thickening in the right upper lobe. Arterial blood gas reveals pH of 7.42, pCO2 of 43, PO2 of 118. IMPRESSION: A 38-year-old with: 1. Status asthmaticus. 2. Acute hypoxemic respiratory failure. 3. Acute hypercapnic respiratory failure. 4. Ongoing cigarette/tobacco use and addiction. 5. Cannabis use. DISCUSSION: A 38-year-old with problems outlined above. He has had increase secretions over the last 24 hours but a chest x-ray does not show pneumonia and his chest exam has markedly improved. RECOMMENDATIONS: 1. Discontinue propofol. We will initiate a spontaneous breathing trial, which is already in progress. He is doing well and extubation is anticipated. 2. Continue DVT prophylaxis. 3. We will discuss tobacco use and cannabis use after extubation. 4. The patient needs to be on chronic inhaled corticosteroids. The patient reports that he has been intubated several times. TIME SPENT: Time spent in critical care management was 30 plus minutes. cc: Yuriy Cloud MD
--- NOTE | 2019-04-07 15:19 | Diag Imaging Result Doc PS360 ---
EXAM: CT THORAX W/O CONTRAST - 04/07/2019 HISTORY: pna, TECHNIQUE: CT thorax without contrast. No contrast administered per request of the referring provider. COMPARISON: 11/04/2015 FINDINGS: There are some retained secretions in bronchi at the bilateral lower lobes. There are ill-defined infiltrates at bilateral lower lobes. These findings are compatible with bronchitis with bronchopneumonia. There is a small cluster of nodules at the lateral mid left upper lobe which is likely inflammatory. There is no dense consolidation, pleural effusion, or pneumothorax identified. IMPRESSION: Bilateral lower lobe bronchitis with bronchopneumonia, most prominent on the left. This exam was performed using automated exposure control, adjustment of mA or kV according to patient size, and/or use of iterative reconstruction technique. Electronically signed by Dylan Hobbs 04/07/2019 3:17 PM
[2019-04-08] MEDS: DUONEB (A & A) INH SCH ×6 (03:31→23:30)
[2019-04-08 04:30] LABS: ALLEN TEST YES; BE 3.9 mmoll (-3.0-3.0); BLOOD TYPE ARTERIAL; METHB 1.1 % (0.0-1.5); O2(CT) 17.3 mL/dL (15.0-23.0); O2HB 96.8 % (95.0-99.0); PCO2(98.6) 38 mmHg (35-45); PO2(98.6) 104 mmHg (60-100); SAMPLE BLOOD; SAO2 100.7 % (95.0-100.0); THB 12.6 g/dL (11.5-17.4); pH(98.6) 7.47 (7.35-7.45)
[2019-04-08 04:31] LABS: MODALITY CANNULA
[2019-04-08] MEDS: ZANTAC 50 MG in NS 50 ML IV SCH ×3 (05:03→23:20)
[2019-04-08] MEDS: D5 NS 1,000 ML IV SCH (06:07)
[2019-04-08 06:31] LABS: EOS# 0.11 X1000 (0.0-0.7); EOS% 1.3 % (0.0-10.0); HEMATOCRIT 39.8 % (42.0-52.0); HEMOGLOBIN 13.1 g/dL (14.0-18.0); IMM GRAN# 0.04 X1000 (0.0-0.04); IMM GRAN% 0.5 % (0.0-0.5); LYMPH# 0.81 X1000 (1.2-3.4); LYMPH% 9.9 % (20.5-51.1); MCH 29.2 PG (27-31); MCHC 32.9 g/dL (33-37); MCV 88.8 FL (81-99); MONO# 0.41 X1000 (0.11-0.59); MPV 13.3 FL (7.4-10.4); NEUT# 6.82 X1000 (1.4-6.5); NEUT% 83.3 % (42.2-75.2); PLT 132 X1000 (130-400); RBC 4.48 XMIL (4.7-6.1); RDW 15.9 % (11.5-14.5); WBC 8.19 X1000 (4.8-10.8)
[2019-04-08 07:13] LABS: AGAP 18; BUN 11 mg/dL (8-22); CALCIUM 8.3 mg/dL (8.8-10.2); CHLORIDE 105 mmol/L (98-107); COSMO 282; CREATININE 0.5 mg/dL (0.7-1.2); ESTIMATED GFR > 60; GLUCOSE 117 mg/dL (70-104); POTASSIUM 4.6 mmol/L (3.5-5.1); SODIUM 141 mmol/L (136-145); TCO2 18 mmol/L (25-35)
[2019-04-08] MEDS: SOLU-MEDROL IV SCH ×4 (08:14→23:20)
[2019-04-08] MEDS: SUBOXONE 8 MG/2 MG SL SCH ×2 (08:15→20:38)
[2019-04-08] MEDS: MAXIPIME 1 GM in NS 50 ML IV SCH ×2 (08:16→20:38)
[2019-04-08] MEDS ORDERED: VANCOMYCIN IV PER PHARMACY MISC SCH (09:45)
[2019-04-08] MEDS: ROBAXIN PO SCH ×3 (09:54→18:38)
[2019-04-08] MEDS: PATIENT'S OWN MED PO SCH (10:40)
--- NOTE | 2019-04-08 10:44 | PROGRESS NOTE ---
DATE: 04/08/2019 SUBJECTIVE: The patient has been successfully extubated yesterday. He is requiring between 2 and 3 L of oxygen by nasal cannula. He reports using oxygen home 2 L per minute. OBJECTIVE: Vital Signs: Temperature 97.9 degrees, heart rate 67, respiratory rate 12, blood pressure 107/82, O2 saturation 93% on 3 L nasal cannula. General: This is a 38-year-old male, lying in bed, in no acute distress. HEENT: Head is normocephalic, atraumatic. Neck: No JVD noted. No carotid bruits. No lymphadenopathy. No thyromegaly. Cardiovascular: S1, S2 heard. No murmurs, gallops, or rubs. Regular rate and rhythm. Respiratory: Still wheezing noted in both pulmonary devi as well as rhonchi. The patient is not using any accessory muscles or having work of breathing. Abdomen: Soft. Nontender to palpation. Bowel sounds present. No organomegaly. Extremities: No clubbing, cyanosis, or edema. Peripheral pulses present in both legs. Neurological: The patient is alert, oriented x3. Moves 4 extremities. LABORATORY DATA: White cell count 8.19 hemoglobin 13.1, hematocrit 39.8, platelets 132,000. ABG shows pH 7.47 with pCO2 38, PO2 104 that was taken on nasal cannula 3 L. CBC. Shows good renal function. UDS for today's ago show amphetamine positive and cannabinoids positive. CT of the chest done yesterday showed bilateral lower lobe bronchitis with bronchopneumonia most prominent on the left. ASSESSMENT AND PLAN: 1. Acute hypoxemic respiratory failure. 2. Acute asthma exacerbation. 3. Left bronchopneumonia/acute bronchitis. 4. Marijuana abuse. PLAN: The patient has been admitted to the hospital for acute asthma exacerbation that required to be intubated. Actually, this patient has been intubated a few times in the past. The patient has been successfully extubated. The information from the nurses said that this patient was having profuse lung secretions, greenish but not foul odor. For that we ordered a CT of the chest with results as above. We have started the patient on cefepime 1 g IV q.12 hours for possible pseudomonal coverage and we are going to add vancomycin to his current treatment. Clinically this patient is requiring between 3 and 4 L of oxygen per nasal cannula. We will continue to monitor this patient closely. He has been strongly advised to stay away from drugs. At this point, I prefer to monitor this patient in the ICU because upon extubation he was requiring 2 L of oxygen and requiring between 3 and 4 and sometimes O2 saturation reach 89. We will continue to monitor this patient here in the ICU and if he is feeling better we will transfer him to regular floor tomorrow. Pulmonary is following this patient. We will follow recommendations. cc: Alejandro Vásquez MD MTDD
[2019-04-08] MEDS ORDERED: VANCOMYCIN 2,100 MG in NS 500 ML IV ONE (11:00)
[2019-04-08] MEDS ORDERED: LASIX IV ONE (12:27)
[2019-04-08] MEDS: LOVENOX SUBQ SCH (12:36)
[2019-04-08] MEDS: ZITHROMAX 500 MG/NS 500 MG/250 ML IVPB IV SCH (14:11)
--- NOTE | 2019-04-08 20:33 | PULMONOLOGY PROGRESS NOTE ---
DATE: 04/08/2019 SUBJECTIVE: The patient is awake, alert, and conversant. He did require increased oxygen earlier in the day. He has a cough, but sputum production has diminished. OBJECTIVE: Vital Signs: The patient has been afebrile for the last 24 hours. Blood pressure 127/84, heart rate 86, respiratory rate 16, oxygen saturation 93% on 50% Venturi mask. HEENT: Pupils are equal and reactive. Oropharynx is clear. Neck: Is supple. Chest: Reveals occasional rhonchi bilaterally. Cardiac exam: S1-S2. Abdomen: Is soft. Extremities: Without edema. LABORATORIES: Sputum culture is revealing a gram-negative eladio. White blood count 8.2, hemoglobin 13.1, platelet count 132,000. Arterial blood gas reveals a pH 7.47, pCO2 of 38, PO2 of 104. IMPRESSION: A 38-year-old with: 1. Status asthmaticus. 2. Gram-negative bronchitis/Gram-negative pneumonia. 3. Acute hypoxemic respiratory failure. 4. Acute hypercapnic respiratory failure. 5. Ongoing tobacco use/nicotine addiction. 6. Cannabis use. 7. Increased oxygen requirements. DISCUSSION: A 38-year-old with problems outlined above. As he resolves some of his bronchial plugging, he may have some increased V/Q mismatching to explain his oxygen requirements. Sputum culture reveals a gram-negative organism and I recommend continuing gram-negative coverage. He does not have any evidence of Staph for gram-positive organisms and I would recommend discontinuing vancomycin at this juncture. RECOMMENDATIONS: 1. Continue bronchial hygiene. 2. Continue Suboxone for chronic pain medicine requirements/addiction. 3. Continue gram negative coverage. 4. Continue bronchial hygiene. 5. Anticipate transfer to the floor when his oxygen requirements begin to decline. cc: Yuriy Cloud MD
[2019-04-08] MEDS ORDERED: VANCOMYCIN 1,850 MG in NS 500 ML IV SCH (23:00)
[2019-04-09] MEDS: DUONEB (A & A) INH SCH ×6 (03:40→23:00)
[2019-04-09] MEDS: ZANTAC 50 MG in NS 50 ML IV SCH ×3 (04:59→21:06)
[2019-04-09 06:31] LABS: EOS# 0.01 X1000 (0.0-0.7); EOS% 0.1 % (0.0-10.0); HEMATOCRIT 40.8 % (42.0-52.0); HEMOGLOBIN 13.4 g/dL (14.0-18.0); LYMPH# 1.07 X1000 (1.2-3.4); LYMPH% 13.4 % (20.5-51.1); MCH 28.8 PG (27-31); MCHC 32.8 g/dL (33-37); MCV 87.6 FL (81-99); MONO# 0.38 X1000 (0.11-0.59); MONO% 4.8 % (1.7-9.3); MPV 12.9 FL (7.4-10.4); NEUT% 81.7 % (42.2-75.2); PLT 163 X1000 (130-400); RBC 4.66 XMIL (4.7-6.1); RDW 15.3 % (11.5-14.5); WBC 7.96 X1000 (4.8-10.8)
[2019-04-09 07:36] LABS: AGAP 14; BUN 15 mg/dL (8-22); CALCIUM 8.9 mg/dL (8.8-10.2); CHLORIDE 101 mmol/L (98-107); COSMO 283; CREATININE 0.5 mg/dL (0.7-1.2); ESTIMATED GFR > 60; GLUCOSE 121 mg/dL (70-104); SODIUM 141 mmol/L (136-145); TCO2 26 mmol/L (25-35)
[2019-04-09] MEDS: PATIENT'S OWN MED PO SCH (08:11)
[2019-04-09] MEDS: SUBOXONE 8 MG/2 MG SL SCH ×2 (08:13→21:05)
[2019-04-09] MEDS: MAXIPIME 1 GM in NS 50 ML IV SCH (08:13)
[2019-04-09] MEDS: ROBAXIN PO SCH ×3 (08:13→21:06)
[2019-04-09] MEDS: SOLU-MEDROL IV SCH ×3 (08:14→23:33)
--- NOTE | 2019-04-09 13:33 | INFECTIOUS DISEASE CONSULT REP ---
DATE: 04/09/2019 CONCLUSION: The patient is seen because of recurrent episodes of pneumonia. The patient does have asthma and this could be contributing to his recurrent attacks of pneumonia. The patient also is a cigarette smoker, which obviously can contribute to his having recurrent pneumonia. In addition, the patient's IgE level is elevated at 1022 and, thus, allergies could be contributing also to his recurrent pneumonia. 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 This too could be contributing to his recurrent episodes of pneumonia. Finally, the patient does have unprotected sexual relations and he may have HIV, which certainly could contribute to recurrent episodes of pneumonia. The patient's immunoglobulin levels are normal. In fact, the IgG level is above normal. Thus, the patient does not have an immunoglobulin deficiency causing pneumonia. RECOMMENDATIONS: I agree with the current patient's antibiotics. I have increased the dose of cefepime to 2 g IV every 12 hours. Also, I have changed azithromycin from IV to p.o. As regarding the patient's recurrent episodes of pneumonia, certainly stopping cigarette smoking would be very important if we are trying to prevent recurrent pneumonia. Also, the patient tells me that he can wear some sort of breathing apparatus at work which he does not always howell and that might protect him from getting fumes which could cause recurrent episodes of pneumonia. I have ordered HIV antibody. Finally, with his elevated IgE, I think that the patient may benefit by going to an cafe worker. DISCUSSION: The patient tells me that for years now, he has been having recurrent episodes of pneumonia. He has had 2 episodes of pneumonia in the past year. He has a history of asthma with wheezing. His CT scan of the chest shows bilateral lower lobe bronchitis and bronchopneumonia, most prominent on the left side. The patient's CBC shows a white blood cell count of 7960, hemoglobin 13.4, and platelet count is 163,000. The patient's eosinophilic count of his white cells was not elevated. PAST MEDICAL HISTORY/REVIEW OF SYSTEMS: Eyes and Ear: He does not have any problems seeing or hearing. Neck: No stiffness or pain. Bones, Joints, and Muscles: The patient has chronic low back pain. Respiratory: See present illness. Cardiac: No chest pain or palpitations. GI: No nausea, vomiting, or diarrhea. Genitourinary: No dysuria or flank pain. Bones, Joints, and Muscles: No joint swelling or muscle aching. Endocrine: He does not have diabetes or thyroid problems. PREVIOUS HOSPITALIZATIONS AND OPERATIONS: The patient has been admitted multiple times for asthma and pneumonia. He has also had extraction of his wisdom teeth. MEDICAL DISEASES: Positive for asthma, chronic low back pain, and opioid dependence. INFECTIOUS DISEASE HISTORY: Positive for recurrent pneumonia. Negative for UTI. FAMILY HISTORY: Positive for diabetes mellitus, hypertension, myocardial infarction, and stroke. SOCIAL HISTORY: [place] girlfriend and their children. He is single. 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 As mentioned above, he smokes cigarettes. He drinks alcoholic beverages and his drug screen was positive for cannabinoids. The patient does not have any pets at home. ALLERGIES: He does not have any allergy to medication. HOME MEDICATIONS: Include Albuterol inhaler, Suboxone, Ativan, and Mydayis. The patient also is on lorazepam and methocarbamol. PHYSICAL EXAMINATION: Vital Signs: Temperature is 98.8 degrees, pulse of 78, respirations 12, blood pressure 111/68. The patient weighs 182 pounds. General: This is a healthy-appearing, young male. He is in no acute distress at this time. Head, Eyes, Ears, Nose, and Throat: He can hear my spoken words and see near objects. He has a pierced tongue. There is no white coating of his tongue. Neck: No meningismus. Lungs: There were bibasilar rales. Cardiovascular: Heart rate is regular. Abdomen: Soft and nontender. Integument: The patient has multiple tattoos. Neurologic: The patient is alert. He can move his extremities. There is no tremor. His sensation is intact to touch. His memory as regarding his medical history was intact. Thank you for the consult. cc: Jorge Molina MD [facility]
[2019-04-09] MEDS: LOVENOX SUBQ SCH (14:31)
[2019-04-09] MEDS: MAXIPIME 2 GM in NS 100 ML IV SCH (17:19)
[2019-04-09 18:03] LABS: HIV ANTIBODY SCREEN SEE COMMENTS
--- NOTE | 2019-04-09 18:11 | PROGRESS NOTE ---
DATE: 04/09/2019 SUBJECTIVE: The patient is sitting up in bed. He states that he feels a little bit better today. He reports that he has not had a bowel movement since admission. OBJECTIVE: Vital Signs: Temperature 97.9 degrees, blood pressure 129/73, heart rate 75, respirations 18, O2 saturation 95% on 4 L nasal cannula. General: This is a young male sitting up in bed in no acute distress. Heart: S1, S2, normal. Lungs: Mild expiratory wheezes bilaterally. Abdomen: Positive bowel sounds. Soft, nontender, nondistended. Extremities: No edema, no cyanosis. Neurologic: The patient is alert and oriented x4. LABORATORY DATA: White blood cell count 7.9, hemoglobin 13, hematocrit 40, platelets 163,000. Sodium 141, potassium 4, chloride 101, CO2 is 26, BUN 15, creatinine 0.5, glucose 121, calcium 8.9. ASSESSMENT AND PLAN: 1. Acute hypoxemic respiratory failure s/p extubation. Continue with the current treatment regimen. 2. Status asthmaticus. Slowly improving. Continue with bronchodilator therapy, intravenous steroids and supplemental oxygen. 3. Bilateral lobe pneumonia secondary to Enterobacter cloacae. The patient's antibiotics have been adjusted by Dr. Molina. We will continue to monitor the patient closely for improvement. 4. Tobacco dependence. The patient was counseled about smoking cessation. 5. Marijuana usage. The patient has been counseled about cessation. 6. Constipation. We will start the patient on scheduled laxative therapy. 7. Chronic pain. Continue on Suboxone. 8. Deep vein thrombosis prophylaxis. Continue on Lovenox. cc: Kiah Miner MD MTDD
--- NOTE | 2019-04-09 19:00 | PULMONOLOGY PROGRESS NOTE ---
DATE: 04/09/2019 SUBJECTIVE: The patient is awake, alert and conversant. He reports some sputum production. He denies shortness of breath. He has a good appetite. OBJECTIVE: Vital Signs: The patient has been afebrile for the last 24 hours. Blood pressure 129/73, heart rate 75, respiratory rate 16. Oxygen saturation 95% on 4 L per nasal cannula. HEENT: Pupils are equal and reactive. Oropharynx is clear. Neck: Supple. Chest: Chest reveals good air entry bilaterally. Cardiac: S1, S2. Abdomen: Soft. Extremities: Without edema. LABORATORIES: Immunoglobulin levels today were normal. Immunoglobulin levels 04/05/2019 were normal. No new microbiology data. Sodium 141, potassium 4.0 chloride 101, bicarbonate 26, BUN 15, creatinine 0.5. HIV study 1 and 2 are negative. IMPRESSION: A 38-year-old with: 1. Status asthmaticus. 2. Elevated IgE level with prior elevation in eosinophil levels consistent with asthma. 3. Acute hypoxemic respiratory failure. 4. Acute hypercapnic respiratory failure. 5. Ongoing tobacco use/nicotine addiction. 6. Cannabis use. 7. Continued decrease in oxygen requirements. PLAN: 1. Continue bronchial hygiene. 2. Continue Suboxone for chronic pain management. 3. Continue treatment of gram-negative pneumonia. 4. Agree with transfer to the floor. cc: Yuriy Cloud MD
[2019-04-09] MEDS: SENOKOT PO SCH (21:06)
[2019-04-09] MEDS: MIRALAX PO SCH ×2 (21:06→23:16)
[2019-04-10] MEDS: DUONEB (A & A) INH SCH ×3 (03:30→11:23)
[2019-04-10 04:05] VITALS: BP 120/72
[2019-04-10] MEDS: ZANTAC 50 MG in NS 50 ML IV SCH (05:13)
[2019-04-10] MEDS: MAXIPIME 2 GM in NS 100 ML IV SCH (05:13)
--- NOTE | 2019-04-10 06:47 | Diag Imaging Result Doc PS360 ---
CHEST-PORTABLE - 04/10/2019 INDICATION: pneumonia COMPARISON: 04/07/2019 FINDINGS: The endotracheal tube has been removed. Lungs are hyperexpanded compatible with COPD. No focal infiltrates, pneumothorax, or pleural effusion. Heart size appears normal. IMPRESSION: COPD. No acute disease. Electronically signed by Dakota Langford 04/10/2019 6:44 AM
[2019-04-10 08:14] LABS: BE 3.7 mmoll (-3.0-3.0); BLOOD TYPE ARTERIAL; HCO3-(ACT) 27.7 mmoll (20.0-26.0); PCO2(98.6) 46 mmHg (35-45); PO2(98.6) 73 mmHg (60-100); SAMPLE BLOOD; SAO2 97.5 % (95.0-100.0); THB 14.2 g/dL (11.5-17.4); pH(98.6) 7.41 (7.35-7.45)
[2019-04-10 08:15] LABS: ALLEN TEST YES
[2019-04-10 08:16] LABS: MODALITY CANNULA
[2019-04-10 09:17] LABS: HEMATOCRIT 44.2 % (42.0-52.0); HEMOGLOBIN 14.5 g/dL (14.0-18.0); MCH 29.2 PG (27-31); MCHC 32.8 g/dL (33-37); MCV 88.9 FL (81-99); RBC 4.97 XMIL (4.7-6.1); RDW 15.1 % (11.5-14.5); WBC 8.59 X1000 (4.8-10.8)
[2019-04-10] MEDS: ROBAXIN PO SCH (09:39)
[2019-04-10] MEDS: SUBOXONE 8 MG/2 MG SL SCH (09:39)
[2019-04-10] MEDS: SOLU-MEDROL IV SCH (09:39)
[2019-04-10] MEDS: MIRALAX PO SCH (09:44)
[2019-04-10] MEDS: PATIENT'S OWN MED PO SCH (09:44)
[2019-04-10] MEDS: SENOKOT PO SCH (09:44)
[2019-04-10 09:50] LABS: AGAP 15; BUN 13 mg/dL (8-22); CALCIUM 8.6 mg/dL (8.8-10.2); CHLORIDE 99 mmol/L (98-107); COSMO 276; CREATININE 0.4 mg/dL (0.7-1.2); ESTIMATED GFR > 60; GLUCOSE 111 mg/dL (70-104); SODIUM 138 mmol/L (136-145); TCO2 24 mmol/L (25-35)
--- NOTE | 2019-04-10 11:58 | INFECTIOUS DISEASE PROGRESS NO ---
DATE: 04/10/2019 PRESENT ILLNESS: The patient has a bibasilar pneumonia. MEDICATIONS: The patient is receiving a combination of cefepime and azithromycin. PHYSICAL EXAMINATION: Vital Signs: Temperature is 97.7 degrees, pulse 60, respirations 12, blood pressure 120/72. General: This is a healthy-appearing young male. He is in no acute distress. Head, Eyes, Ears, Nose, and Throat: He can hear my spoken words and see near objects. He has got a pierced tongue. There is no white coating of the tongue, however. Neck: No meningismus. Lungs: Clear to auscultation. Cardiovascular: Regular heart rate. Abdomen: Soft and nontender. Neurologic: The patient is alert. He can move his extremities. There is no tremor. Integument: No rash noted. The patient does have a lot of tattoos, and he also has an earring on the left ear. DIAGNOSTIC STUDIES: The patient's chest x-ray showed clear lung devi. On CT scan, the patient was found to have bibasilar pneumonia. Immunoglobulin levels are normal with the IgA level at 396 and the IgG level at 869. HIV antibodies were negative. CBC shows a white count of 8590, hemoglobin 14.5, and platelet count 163,000. Arterial blood gases show a pH of 7.41, a PO2 of 73, and a pCO2 of 46. Creatinine is 0.4, GFR is greater than 60. Sputum culture grew Enterobacter and not containing. ASSESSMENT AND PLAN: The patient has recurrent pneumonia. For his current episode, I am sending him out on Levaquin 500 mg p.o. daily for 10 days. Some of the side effects of the antibiotic, including rash, diarrhea, seizures, tendon rupture and neurologic damage, have been explained to the patient. He agrees with treatment. I have requested the patient to come to my office in 2 weeks. As regarding the recurrent episodes of pneumonia, the patient does have asthma and multiple allergies, and this could be contributing to his recurrent pneumonia. I told the patient that I thought he should see an caustic operator or if he sees a pulmonary doctor, one that could test the patient for allergies, and the patient may benefit by having allergy injections. Also, the patient is a smoker and certainly stopping cigarette smoking would be a big step in cutting down the likelihood of recurrent pneumonia. Where the patient works, he is around fumes, and he has a contraption that he is supposed to wear to prevent any damage from the fumes. The patient tells me that he wears it sometimes, but not all the time, and I told him I think he should wear it all the time he is working, and hopefully this would cut down the likelihood of having recurrent pneumonia also. Since the patient's immunoglobulin levels are normal, he would not be a candidate for immunoglobulin replacement therapy. Finally, the patient is a cigarette smoker, and I told him that certainly he should stop cigarette smoking, not only to prevent recurrent pneumonia, but for many other reasons, such as having a heart attack or lung cancer. PATIENT'S COMORBIDITIES: As mentioned above, he has 3 main comorbidities. 1. He is a cigarette smoker. 2. Where he works, he is exposed to fumes. 3. The patient has a history already of having allergies. I have given the patient an appointment to come to my office in 2 weeks, and I have electronically sent a prescription for Levaquin 750 mg daily for 10 days to the patient's pharmacy, which [place] [facility] [place] [id number]. The computer shows that the prescription was successfully accepted by the [facility] sales consultant. cc: Jorge Molina MD
[2019-04-10] MEDS ORDERED: ZITHROMAX PO SCH (13:00)
== END 2019-04-10 13:24 | disposition home or self-care (01) | DRG 208 ==
LOC: SUPCPDRO → ED 04:32 → SUATTDRO 04:33 → ICU 04:33 → 3N 04-09 10:42
PROVIDERS: ATTEND Internal Medicine
CPT/HCPCS: 71010; 71045; 71250; 80048; 80053; 80101; 80301; 80307; 80324; 80345; 80346; 80353; 80358; 80361; 80365; 81001; 82784; 82785; 82805; 83992; 85025; 85027; 86701; 87070; 87077; 87186; 87205; 87389; 89220; 94003; 94640; 94761; 94799; 96365; 96372; 96375; 99285; A9270; G0431; G0434; G0479; G0480; J0171; J0330; J0456; J0692; J1650; J1940; J2060; J2270; J2780; J2920; J2930; J3370; J3475; J7040; J7042; J7506; J7512

== ENCOUNTER 2019-05-08 05:11 | Inpatient (IN) ==
[2019-05-08] MEDS ORDERED: ALBUTEROL NEB INH ONE ×2 (05:18→09:42)
[2019-05-08] MEDS ORDERED: ATROVENT NEB INH ONE (05:19)
[2019-05-08] MEDS ORDERED: SOLU-MEDROL IV ONE (05:19)
[2019-05-08] MEDS ORDERED: NS 1,000 ML IV ONE ×2 (05:37→08:43)
--- NOTE | 2019-05-08 05:37 | PROVIDER DOCUMENTATION ---
HPI-General Adult - General Chief Complaint: Asthma Attack Stated Complaint: DIFFICULTY BREATHING Time Seen by Provider: 05/08/19 05:25 Source: patient, EMS Allergies/Adverse Reactions: Patient Allergies Allergy/AdvReac Type Severity Reaction Status Date / Time No Known Allergies Allergy Verified 05/08/19 05:21 Home Medications: Home Medication List Medication Instructions Recorded Confirmed Last Taken Type Albuterol Sulfate Inhaler 2 puff IH DIRECTED PRN 11/11/15 05/08/19 07/06/18 01:00 History [Ventolin Hfa] Buprenorphine HCl/Naloxone HCl 1 film SL BID 01/24/19 05/08/19 Unknown History [Suboxone 8 mg/2 mg Sl Film] Dextroamphetamine/Amphetamine 50 mg PO DAILY 01/24/19 05/08/19 Unknown History [Mydayis ER 50 mg Capsule] Lorazepam 2 mg PO DAILY 01/24/19 05/08/19 Unknown History Methocarbamol 1 tab PO TID 01/24/19 05/08/19 Unknown History Albuterol 2.5MG/Ipratrop 0.5MG 3 ml INH Q4H PRN #30 neb 04/10/19 05/08/19 Unkn own Rx [Duoneb (A & A)] Budesonide/Formoterol Fumarate 10.2 gm INHALATION BID #1 04/10/19 05/08/19 Unknown Rx [Symbicort 160-4.5 Mcg Inhaler] hfa.aer.ad Levofloxacin [Levaquin] 750 mg PO DAILY #10 tab 04/10/19 05/08/19 Unknown Rx Montelukast [Singulair] 10 mg PO DAILY #30 tab 04/10/19 05/08/19 Unknown Rx Prednisone 20 mg PO DIRECTED #30 tab 04/10/19 05/08/19 Unknown Rx - History of Present Illness -Gen Adult Nature of Presenting Problems: 38 y/o M brought to the ED by EMS complaining of dyspnea. States he began to feel like he has an asthma attack 2-3 days ago and his dyspnea has persisted despite using his home albuterol and nebulzied duonebs. No cough, fever or recent URI. Was intubated due to an asthma exacerbation about 1 month ago. Is not currently on any steroids or daily preventative asthma medications. Review of Systems - Adult - REVIEW OF SYSTEMS - ADULT Constitutional: reports: no symptoms reported Eyes: reports: no symptoms reported Ears, Nose, Mouth & Throat: reports: no symptoms reported Cardiovascular: reports: no symptoms reported Respiratory: reports: shortness of breath, wheezing Gastrointestinal: reports: no symptoms reported Genitourinary: reports: no symptoms reported Musculoskeletal: reports: no symptoms reported Integumentary: reports: no symptoms reported Neurological: reports: no symptoms reported Psychiatric: reports: no symptoms reported Endocrine: reports: no symptoms reported Hematologic/Lymphatic: reports: no symptoms reported Allergic/Immunologic: reports: no symptoms reported All Other Systems: Reviewed and Negative Past History - Adult - PAST MEDICAL HISTORY-ADULT Review of Records: reports: Old Records Reviewed, Nursing Assessment Review, Medications Reviewed, Social history reviewed & non-contributory. Major Childhood Illnesses: reports: denies history Cardiovascular: reports: denies history Respiratory: reports: asthma (Has been intubated in the past), pneumonia Gastrointestinal: reports: denies history Obstetrical/Gynecological: reports: denies history Genitourinary: reports: denies history Musculoskeletal: reports: denies history Neurological: reports: denies history Psychiatric: reports: anxiety Endocrine/Immune: reports: denies history Other Conditions: reports: denies history, other (Chronic pain, opioid dependence) - PRIOR SURGERIES/PROCEDURES Surgical/Procedure History: reports: none - IMMUNIZATION STATUS Childhood Immunizations: UTD Flu Vaccine: NUTD - FAMILY HISTORY Family History: reviewed, not pertinent Physical Exam-General - PHYSICAL EXAM-ADULT Initial Vital Signs Reviewed: Yes - CONSTITUTIONAL General Appearance: appears well, alert, mild distress - EYES Eyes: PERRL/EOMI, pink conjunctivae - HEAD, EARS, NOSE, MOUTH & THROAT HENMT: normocephalic/atraumatic, moist mucous membranes, normal ENT inspection, pharynx normal - NECK Neck: non-tender, full range of motion, supple - RESPIRATORY Respiratory: chest non-tender, respiratory distress (mild), accessory muscle use (mild), wheezing (tight wheezes in all devi and phases,) - CARDIOVASCULAR Cardiovascular: normal peripheral pulses, no edema, no JVD, tachycardia - GASTROINTESTINAL (ABDOMEN) Abdominal Exam: non tender, soft - MUSCULOSKELETAL Back Exam: normal inspection, no CVA tenderness, no vertebral tenderness Extremity: normal range of motion, non-tender, no pedal edema - SKIN Integumentary: normal color, normal turgor, warm/dry - NEUROLOGIC Neurologic: grossly normal, no motor/sensory deficits - PSYCHIATRIC Psych/Mental Status: normal mood/affect, normal thought content, normal thought process, oriented x 3 Progress - PLAN OF CARE/RESULTS Progress/Plan/Lab Results: Vital Signs - 8 hr 05/08/19 05:25 05/08/19 05:31 Pulse Rate 116 H 117 H Respiratory Rate 22 19 Blood Pressure 150/87 125/90 O2 Sat by Pulse Oximetry 88 L 97 Orders Category Date Time Status IV Insertion ORDERED Care 05/08/19 05:19 Active CHEST-1 VIEW [RAD] Stat Exams 05/08/19 05:19 Ordered BASIC METABOLIC PANEL [CHEM] Stat Lab 05/08/19 05:22 Ordered CBC WITH DIFF [HEME] Stat Lab 05/08/19 05:22 Ordered Albuterol [Albuterol Neb] Med 05/08/19 05:18 Discontinued 15 mg INH NOW ONE Ipratropium [place] Neb [Atrovent Neb] Med 05/08/19 05:19 Discontinued 1 mg INH NOW ONE Methylprednisolone Sod Succ [Solu-Medrol] Med 05/08/19 05:19 Discontinued 125 mg IV NOW ONE Aerosol Treatments Routine Oth 05/08/19 05:19 Active Aerosol Treatments Stat Oth 05/08/19 05:19 Active dyspnea likely due to asthma exacerbation will treat and will further evaluate for other causes. Result Diagrams: 05/08/19 05:25 05/08/19 05:25 - REASSESSMENT Reassessment #1 Status: improving (slightly improved wheezes, continued dyspnea but improving some. Mag ordered and will admit and will continued continous nebs. Discussed case with Dr. Yan, hospitalist who will see and admit pt.) - EKG 1 Time of EKG reading by physician:: 05:25 EKG Read and Signed by:: Anne Marie Sosa EKG Interpretation (*Must complete 3 of following elements*): Abnormal (Sinus Tachycardia, rate 115, no acute st changes, normal axis and intervals) - XRAY 1 XRAY Study: Chest Impression: Normal Departure - Departure Date of Disposition Decision: 05/08/19 Time of Disposition Decision: 06:09 DIAGNOSIS: Asthma exacerbation Qualifiers: Asthma severity: moderate Asthma persistence: unspecified Qualified Code(s): J45.901 - Unspecified asthma with (acute) exacerbation Disposition: ADMITTED INPATIENT 09 Certified Medical Emergency: Emergent Condition: Serious - Critical Care Note This patient required my direct & personal management of CC.: Yes Total Time (mins): 45 Critical Care Statement: This patient required my direct personal management to treat or rule out processes, the absence of which, could potentiallly result in sudden, clinically significant life or limb threatening deterioration. Attestation - Physician/ SANDEEP Attestation Patient care was provided by Advanced Practice Provider:: No The physician spent face to face time with patient:: Yes Advanced Practice Provider documentation review:: Supervising physician onsite and consulted in the evaluation and care of this patient. The physician did have a face to face encounter with the patient.
[2019-05-08 05:52] LABS: BASO# 0.03 X1000 (0.0-0.2); BASO% 0.6 % (0.0-0.8); EOS# 0.46 X1000 (0.0-0.7); EOS% 8.5 % (0.0-10.0); HEMATOCRIT 49.1 % (42.0-52.0); HEMOGLOBIN 16.3 g/dL (14.0-18.0); LYMPH# 1.53 X1000 (1.2-3.4); LYMPH% 28.3 % (20.5-51.1); MCH 28.9 PG (27-31); MCHC 33.2 g/dL (33-37); MCV 87.1 FL (81-99); MONO# 0.55 X1000 (0.11-0.59); MONO% 10.2 % (1.7-9.3); MPV 11.7 FL (7.4-10.4); NEUT# 2.84 X1000 (1.4-6.5); NEUT% 52.4 % (42.2-75.2); PLT 197 X1000 (130-400); RBC 5.64 XMIL (4.7-6.1); RDW 15.1 % (11.5-14.5); WBC 5.41 X1000 (4.8-10.8)
[2019-05-08] MEDS ORDERED: MAGNESIUM SULFATE 2 GM/S.W.I. 2 GM/50 ML IVPB IV ONE (06:02)
[2019-05-08 06:08] LABS: AGAP 12; BUN 5 mg/dL (8-22); CALCIUM 9.3 mg/dL (8.8-10.2); CHLORIDE 101 mmol/L (98-107); COSMO 279; CREATININE 0.8 mg/dL (0.7-1.2); ESTIMATED GFR > 60; GLUCOSE 115 mg/dL (70-104); POTASSIUM 4.1 mmol/L (3.5-5.1); SODIUM 141 mmol/L (136-145); TCO2 28 mmol/L (25-35)
[2019-05-08] MEDS ORDERED: XOPENEX NEB INH ONE (06:33)
[2019-05-08] MEDS ORDERED: NS NEB INH SCH (06:45)
--- NOTE | 2019-05-08 06:59 | Diag Imaging Result Doc PS360 ---
EXAM: CHEST-1 VIEW 05/08/2019 HISTORY: dyspnea TECHNIQUE: AP portable at 0547 COMMENT: The lungs are hyperinflated. There are no focal opacities. The heart size and pulmonary vascularity are within normal limits. IMPRESSION: Hyperinflation, consistent with asthma. No evidence of acute disease otherwise. Electronically signed by Israel Burns 05/08/2019 6:57 AM
[2019-05-08] MEDS ORDERED: DUONEB (A & A) INH ONE (08:00)
[2019-05-08] MEDS ORDERED: ZOFRAN IV PRN (08:43)
[2019-05-08] MEDS ORDERED: DUONEB (A & A) INH PRN (08:43)
[2019-05-08] MEDS ORDERED: TYLENOL PO PRN (08:43)
[2019-05-08] MEDS ORDERED: SALINE LOCK IV FLUID XX ONE (08:43)
--- NOTE | 2019-05-08 09:27 | HISTORY AND PHYSICAL ---
PRIMARY CARE PROVIDER: Dr. Marilee Patrick. CHIEF COMPLAINT: Asthma exacerbation. HISTORY OF PRESENT ILLNESS: Mr. Mcclure is a 38-year-old male known to our service for asthma exacerbation requiring intubation in the past. He states for the past 2 days he has had an increase in shortness of breath and wheezing. He was getting some relief with his inhalers at home. However, throughout the morning hours, they continue to increase and he was not able to control it with his home albuterol. On arrival to the ED, he was found to have O2 saturations on room air at 88%. He was placed on nasal cannula and had to be bumped up to a non-rebreather. His chest x-ray showed hyperinflation consistent with asthma, but no pneumonia. He was given high- dose IV steroids, magnesium sulfate, Xopenex, ipratropium bromide, albuterol and DuoNebs. He has had some improvement. However, the patient is sitting straight up in bed and has audible inspiratory and expiratory wheezes, and is currently asking for another breathing treatment. We will admit him initially to the ICU. Consult Pulmonology. Check an ABG. Continue on bronchodilators and high-dose IV steroids and supplemental O2. PAST MEDICAL HISTORY: 1. Allergic rhinitis. 2. Asthma requiring intubation in the past. 3. Chronic pain with opiate dependence. PAST SURGICAL HISTORY: Denies. FAMILY HISTORY: Reviewed and noncontributory. SOCIAL HISTORY: He lives with family. He smokes a half pack cigarettes per day. However, he has not smoked any over the last 5 days. He denied any current marijuana use. 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 ALLERGIES: Latex. HOME MEDICATIONS: 1. DuoNeb 3 mL inhaled q. 4 hours p.r.n. 2. Albuterol sulfate 2 puffs inhaled as directed p.r.n. 3. Symbicort 10.2 g inhaled b.i.d. 4. Suboxone 8 mg-2 mg sublingual film, 1 film sublingual b.i.d. 5. Mydayis ER 50 mg p.o. daily. 6. Levaquin 750 mg p.o. daily. 7. Lorazepam 2 mg p.o. daily. 8. Methocarbamol 1 tab p.o. t.i.d. 9. Singulair 10 mg p.o. daily. 10. Prednisone 20 mg p.o. as directed. However, the patient has not been taking his prednisone. REVIEW OF SYSTEMS: Twelve-point review of systems completely negative, except for those mentioned in HPI. PHYSICAL EXAMINATION: VITAL SIGNS: Temperature is 99.8 degrees, heart rate 117, respiration 19, blood pressure 125/90, O2 is 97% on Ventimask. GENERAL: Mr. Mcclure is a pleasant 38-year-old male, who is sitting straight up in the bed in tripod position. He was having some degree of difficulty breathing, but not in any acute distress. HEENT: Atraumatic, normocephalic. PERRL. NECK: Supple. Trachea midline. CARDIOVASCULAR: S1, S2 appreciated. No murmurs, gallops, rubs noted. RESPIRATORY: Lung sounds appreciated. Inspiratory and expiratory wheezes audible, as well as listening throughout all lung devi. GI: Soft, nontender, nondistended. Positive bowel sounds 4 quadrants. LOWER EXTREMITIES: Trace edema. Bilateral pedal pulses are palpable. NEUROLOGIC: Patient is awake, alert, and oriented, follows commands. Moves all extremities. Answers all questions appropriately. DIAGNOSTIC DATA: Chest x-ray: Hyperinflation consistent with asthma. LABORATORY DATA: White count 5, hemoglobin and hematocrit 16 and 49, platelet count 197. Sodium 141, potassium 4.1, BUN 5, creatinine 0.8, blood glucose is 115. ASSESSMENT/PLAN: 1. Acute asthma exacerbation. We will place him in the intensive care unit. Consult Pulmonology. Check an arterial blood gas. Continue supplemental oxygen, bronchodilators, intravenous steroids. The patient continues to smoke. However, he has not had a cigarette per report in the last 5 days. 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 We will continue with peak flow twice daily incentive spirometry. 2. Hypoxia. We will check an arterial blood gas. Continue supplemental oxygen, bronchodilators and aggressive pulmonary toilet. 3. Tobacco use and abuse. Patient has been educated on smoking cessation as well as the means to quit. 4. Chronic pain. We will continue home medications. 5. Allergic rhinitis. Continue home Singulair. Further recommendations to follow physician evaluation, laboratory and diagnostic data. Dictated by ADAN Miramontes for Sukhi Hester MD cc: MD Yuriy Horne MD
[2019-05-08] MEDS ORDERED: SUBOXONE 8 MG/2 MG FILM SL SCH (09:30)
[2019-05-08 09:38] LABS: ALLEN TEST YES; BE -3.2 mmoll (-3.0-3.0); BLOOD TYPE ARTERIAL; HCO3-(ACT) 22.4 mmoll (20.0-26.0); METHB 1.5 % (0.0-1.5); O2HB 96.9 % (95.0-99.0); PO2(98.6) 175 mmHg (60-100); SAMPLE BLOOD; SAO2 99.9 % (95.0-100.0); THB 15.9 g/dL (11.5-17.4); pH(98.6) 7.28 (7.35-7.45)
[2019-05-08 09:40] LABS: MODALITY VENTIMASK; PCO2(98.6) 52 mmHg (35-45)
[2019-05-08] MEDS ORDERED: ALBUTEROL NEB INH SCH (10:00)
[2019-05-08] MEDS: ATIVAN PO SCH (10:00)
[2019-05-08] MEDS: SINGULAIR PO SCH (10:00)
[2019-05-08] MEDS: SOLU-MEDROL IV SCH ×3 (10:01→23:45)
[2019-05-08] MEDS: ZITHROMAX 500 MG/NS 500 MG/250 ML IVPB IV SCH (10:01)
[2019-05-08] MEDS: ROBAXIN PO SCH ×3 (10:01→16:49)
[2019-05-08] MEDS ORDERED: SUBOXONE 8 MG/2 MG SL SCH (10:18)
[2019-05-08] MEDS: SUBOXONE 8 MG/2 MG SL SCH ×2 (11:16→16:49)
[2019-05-08] MEDS: ALBUTEROL NEB INH SCH ×4 (11:45→22:54)
[2019-05-08] MEDS: DUONEB (A & A) INH SCH ×4 (11:45→22:53)
--- NOTE | 2019-05-08 12:22 | HISTORY AND PHYSICAL ---
ADDENDUM REPORT This is an H P addendum. Briefly, the patient is here for shortness of breath and asthma exacerbation. He still does smoke, and he has been severely bronchospastic the last couple days. He has significant wheezing throughout with poor air movement, but still some air movement, but he still sounds very tight. He has got increased work of breathing. Workup in the ER is consistent with status asthmaticus. He has been placed on breathing treatments, steroids, antibiotics. He is refusing BiPAP or high- flow O2, stating he would rather be intubated than have those measures. Hopefully, we can avoid that with the current measures. He is not on any maintenance therapy for asthma. He was discharged on Symbicort per Dr. Miner, I guess he never got it filled. I do believe he has insurance to cover his medications. We will reinforce tobacco cessation and insurance of maintenance medications. We will also check his IgE levels. cc: Sukhi Hester MD
[2019-05-08] MEDS: PULMICORT INH SCH ×2 (15:46→19:39)
[2019-05-08 16:22] LABS: ALLEN TEST YES; BE -4.7 mmoll (-3.0-3.0); BLOOD TYPE ARTERIAL; HCO3-(ACT) 21.3 mmoll (20.0-26.0); METHB 1.1 % (0.0-1.5); O2(CT) 21.9 mL/dL (15.0-23.0); O2HB 97.7 % (95.0-99.0); PCO2(98.6) 46 mmHg (35-45); PO2(98.6) 185 mmHg (60-100); SAMPLE BLOOD; THB 15.7 g/dL (11.5-17.4); pH(98.6) 7.29 (7.35-7.45)
[2019-05-08 16:24] LABS: MODALITY VENTIMASK
[2019-05-08 20:22] LABS: UR AMPHETAMINES QUAL PRESUMPTIVE POSITIVE (NONE DETECT); UR BARBITUATES QUAL NONE DETECTED (NONE DETECT); UR BENZODIAZEPIN QUAL NONE DETECTED (NONE DETECT); UR CANNABINOIDS QUAL NONE DETECTED (NONE DETECT); UR COCAINE QUAL NONE DETECTED (NONE DETECT); UR METHADONE QUAL NONE DETECTED (NONE DETECT); UR OPIATES QUAL NONE DETECTED (NONE DETECT); UR OXYCODONE QUAL NONE DETECTED (NONE DETECT); UR PCP QUAL NONE DETECTED (NONE DETECT)
--- NOTE | 2019-05-08 22:51 | PULMONOLOGY CONSULTATION ---
DATE: 05/08/2019 REQUESTING PHYSICIAN: Sukhi Hester MD REASON FOR CONSULTATION: Asthma. HISTORY OF PRESENT ILLNESS: Mr. Mcclure is a 38-year-old white male, who was evaluated by this practitioner on 04/05/2019 when he required intubation for status asthmaticus. The patient was subsequently extubated. His primary asthma medication controller at that time was albuterol. The patient was informed that he needed to be on an inhaled corticosteroid with tapering of his steroids. Symbicort was prescribed. The patient was also scheduled for followup in my clinic along with a PFT on 05/01/2019. The patient did not get his inhaled corticosteroid prescription filled. He did not keep the pulmonary function study test appointment. The patient has had increasing shortness of breath over the last several days and presented to the emergency room in extremis. PAST MEDICAL HISTORY/PROBLEM LIST: 1. Asthma with at least 2 prior intubations. 2. Chronic pain syndrome on Suboxone. 3. Tobacco use. He reports he has not smoked in the last week. 4. Amphetamine use and cannabis use. SOCIAL HISTORY: Multidrug use as outlined above. He continues to work. Nonsmoker x1 week as per above. FAMILY HISTORY: Not contributory to current presentation. REVIEW OF SYSTEMS: Notable for increasing shortness of breath, increasing cough, increasing wheezing. He denies fevers or chills. PHYSICAL EXAMINATION: General: Reveals a thin white male with mild increased work of breathing. He is not in respiratory distress at this time. Vital signs: Blood pressure 122/70, heart rate 115, respiratory rate 13, oxygen saturation 95% on Venturi mask. HEENT: Pupils are equal and reactive. Oropharynx is clear. Neck: Supple. Chest: Reveals some accessory muscle use with diffuse wheezing and prolonged expiratory phase. Cardiac Exam: Increased rate, regular rhythm. Abdomen: Soft. Extremities: Without edema. LABORATORIES: Chest x-ray reveals hyperinflation but no acute changes. White blood count 5.41, hemoglobin 16.3, platelet count 197,000. He has 8.5% eosinophils with a total eosinophil count of 460. Arterial blood gas on presentation: pH 7.28, pCO2 of 52, pO2 of 175. Arterial blood gas 7 hours later: pH 7.29, pCO2 of 46, pO2 of 185. IMPRESSION: A 38-year-old with severe asthma, 2 prior intubations, hypereosinophilia, noncompliance with steroids, noncompliance with inhaled corticosteroid prescription, noncompliance with asthma followup. The patient is placing his life at risk with his noncompliance. RECOMMENDATIONS: 1. Continue ICU monitoring. He does have CO2 retention but has not been progressive and has actually slightly declined over the last several hours. 2. Continue steroid dosing as you are doing. 3. We will add a macrolide in the event he has an atypical infection driving current status asthmaticus presentation. 4. Encourage continued abstinence from tobacco and drugs. The patient currently has positive amphetamines in his urine. 5. Ongoing education about the importance of compliance with medications. cc: Yuriy Cloud MD
[2019-05-09] MEDS: ALBUTEROL NEB INH SCH ×5 (03:30→23:34)
[2019-05-09] MEDS: DUONEB (A & A) INH SCH ×4 (03:30→14:50)
[2019-05-09] MEDS: SOLU-MEDROL IV SCH ×4 (05:02→22:44)
[2019-05-09 05:39] LABS: BASO# 0.01 X1000 (0.0-0.2); BASO% 0.1 % (0.0-0.8); EOS# 0.01 X1000 (0.0-0.7); EOS% 0.1 % (0.0-10.0); HEMATOCRIT 44.4 % (42.0-52.0); HEMOGLOBIN 14.6 g/dL (14.0-18.0); LYMPH% 6.7 % (20.5-51.1); MCH 29.5 PG (27-31); MCHC 32.9 g/dL (33-37); MCV 89.7 FL (81-99); MONO# 0.71 X1000 (0.11-0.59); MONO% 4.3 % (1.7-9.3); MPV 11.6 FL (7.4-10.4); NEUT# 14.67 X1000 (1.4-6.5); NEUT% 88.8 % (42.2-75.2); PLT 185 X1000 (130-400); RBC 4.95 XMIL (4.7-6.1); RDW 15.8 % (11.5-14.5)
[2019-05-09 05:51] LABS: AGAP 12; ALB/GLOB RATIO 1.5; ALKALINE PHOSPHATASE 65 U/L (32-122); BUN 12 mg/dL (8-22); CALCIUM 8.7 mg/dL (8.8-10.2); CHLORIDE 101 mmol/L (98-107); COSMO 278; CREATININE 0.6 mg/dL (0.7-1.2); ESTIMATED GFR > 60; GLUCOSE 144 mg/dL (70-104); GOT 14 U/L (10-34); GPT 15 U/L (10-44); POTASSIUM 4.8 mmol/L (3.5-5.1); SODIUM 138 mmol/L (136-145); TCO2 25 mmol/L (25-35); TOTAL BILIRUBIN 0.28 mg/dL (0.20-1.00); TOTAL PROTEIN 6.6 g/dL (6.3-8.3)
--- NOTE | 2019-05-09 07:20 | Diag Imaging Result Doc PS360 ---
CHEST-PORTABLE - 05/09/2019 INDICATION: short of breath COMPARISON: 05/08/2019 FINDINGS: Stable hyperexpanded lungs compatible with airways disease. No infiltrates. Heart size is normal. IMPRESSION: Hyperexpanded lungs. No change from prior. Electronically signed by Dakota Langford 05/09/2019 7:17 AM
[2019-05-09] MEDS: PULMICORT INH SCH ×2 (07:39→19:49)
[2019-05-09] MEDS: ATIVAN PO SCH (09:11)
[2019-05-09] MEDS: SINGULAIR PO SCH (09:12)
[2019-05-09] MEDS: ROBAXIN PO SCH ×3 (09:47→18:22)
[2019-05-09] MEDS: SUBOXONE 8 MG/2 MG SL SCH ×2 (09:48→18:22)
[2019-05-09] MEDS: ZITHROMAX 500 MG/NS 500 MG/250 ML IVPB IV SCH (09:48)
[2019-05-09 09:54] LABS: ALLEN TEST YES; BE 0.2 mmoll (-3.0-3.0); BLOOD TYPE ARTERIAL; HCO3-(ACT) 25.1 mmoll (20.0-26.0); METHB 1.6 % (0.0-1.5); MODALITY VENTIMASK; O2(CT) 20.7 mL/dL (15.0-23.0); O2HB 96.8 % (95.0-99.0); PCO2(98.6) 42 mmHg (35-45); PO2(98.6) 159 mmHg (60-100); SAMPLE BLOOD; SAO2 99.4 % (95.0-100.0); pH(98.6) 7.39 (7.35-7.45)
--- NOTE | 2019-05-09 14:19 | PROGRESS NOTE ---
DATE: 05/09/2019 INTERVAL HISTORY: The patient's dyspnea much improved. Still requiring some oxygen. No further respiratory distress. No new complaints. REVIEW OF SYSTEMS: A 12-point review of systems negative except as per interval history. LABORATORY DATA: WBC 16.5, hemoglobin 14.6, hematocrit 44,4, platelets 195,000. ABG with pH 7.38, PCO2 of 42, PO2 of 159 on 50% Ventimask. Complete metabolic panel unremarkable aside from glucose 144. UDS positive for amphetamines which patient takes at home. Negative for benzodiazepines which the patient also reportedly takes at home. OBJECTIVE: Vital Signs: T-max 98.7 degrees, pulse 109, respirations 17, blood pressure 100/57, O2 saturation 94% on 50% Venti mask. General: No acute distress. HEENT: Normocephalic, atraumatic. Moist mucous membranes. Neck: No cervical adenopathy. Cardiovascular: Slightly tachycardic but regular. No murmurs noted. Pulmonary: Moderate expiratory wheezing throughout but good air entry. Abdomen: Soft, nontender, nondistended. Bowel sounds positive. Extremities: Peripheral pulses intact. No clubbing, cyanosis or edema. Neurologic: Cranial nerves grossly intact. No focal deficits identified. Psychiatric: Normal mood and affect. Awake, alert, oriented x3. Skin: No new rashes or lesions identified. ASSESSMENT AND PLAN: 1. Acute hypoxic respiratory failure, asthma exacerbation. The patient's hypercapnia appears to be resolved on ABG this morning. Oxygenation improved as well with significant room to wean. Continue treatment with steroids and breathing treatments. The patient is symptomatically improved as well. Appears stable for the floor if that is okay with Pulmonology. 2. Tobacco abuse. Patient counseled on cessation. 3. Medication noncompliance. The patient did not take his prescribed inhaler after last discharge nd did not follow up. The importance of compliance was emphasized to the patient. 4. Chronic pain. Continue home Suboxone. 5. Anxiety. Continue home Ativan. 6. Holding home amphetamine. Confirmed on PDMP that he is in fact prescribed Ativan, Mydayis, and suboxone. [facility]
--- NOTE | 2019-05-09 22:48 | PULMONOLOGY PROGRESS NOTE ---
DATE: 05/09/2019 SUBJECTIVE: The patient is awake, alert, and conversant. He has had lunch today. He has minimal increased work of breathing compared to yesterday evening. OBJECTIVE: Vital Signs: The patient has been afebrile for the last 24 hours. Blood pressure 128/68, heart rate 107, respiratory rate 20, oxygen saturation 97% on nasal cannula. HEENT: Pupils are equal and reactive. Oropharynx appears clear. Neck: Is supple. Chest: Reveals prolonged expiratory phase with diffuse wheezing. Minimal accessory muscle use. Cardiac: S1, S2. Abdomen: Is soft. Extremities: Without edema. LABORATORIES: Chest x-ray reveals hyperinflation. White blood count is 16.50, hemoglobin 14.6 with near complete suppression of eosinophils with a count of 0.1%. Arterial blood gas pH 7.39, pCO2 of 42, PO2 of 159 with a decrease in lactate to 3.4. IMPRESSION: A 38-year-old with 1. Severe asthma. 2. Hypereosinophilia. 3. Status asthmaticus. 4. Noncompliance with asthma medications. 5. Acute hypoxemic respiratory failure. RECOMMENDATION: 1. Continue current steroids, antibiotics, and bronchodilator regimen. 2. Advance diet as tolerated. 3. Agree with plans to transfer to the floor. 4. Ongoing education about the importance of medication compliance. cc: Yuriy Cloud MD
[2019-05-10] MEDS: ALBUTEROL NEB INH SCH ×6 (03:43→23:03)
[2019-05-10 05:56] LABS: ALLEN TEST YES; BE 3.4 mmoll (-3.0-3.0); BLOOD TYPE ARTERIAL; HCO3-(ACT) 27.5 mmoll (20.0-26.0); METHB 1.4 % (0.0-1.5); O2(CT) 19.4 mL/dL (15.0-23.0); O2HB 96.2 % (95.0-99.0); PCO2(98.6) 44 mmHg (35-45); PO2(98.6) 103 mmHg (60-100); SAMPLE BLOOD; THB 14.3 g/dL (11.5-17.4); pH(98.6) 7.42 (7.35-7.45)
[2019-05-10] MEDS: SOLU-MEDROL IV SCH ×3 (05:57→21:24)
[2019-05-10 05:58] LABS: MODALITY CANNULA
[2019-05-10 07:11] LABS: HEMATOCRIT 42.9 % (42.0-52.0); IMM GRAN# 0.04 X1000 (0.0-0.04); IMM GRAN% 0.2 % (0.0-0.5); LYMPH# 0.98 X1000 (1.2-3.4); MCH 29.2 PG (27-31); MCHC 32.6 g/dL (33-37); MCV 89.4 FL (81-99); MONO# 0.84 X1000 (0.11-0.59); MONO% 5.2 % (1.7-9.3); MPV 12.1 FL (7.4-10.4); NEUT# 14.44 X1000 (1.4-6.5); NEUT% 88.6 % (42.2-75.2); PLT 198 X1000 (130-400); RDW 15.9 % (11.5-14.5)
[2019-05-10 07:31] LABS: AGAP 11; BUN 18 mg/dL (8-22); CHLORIDE 99 mmol/L (98-107); COSMO 277; CREATININE 0.6 mg/dL (0.7-1.2); ESTIMATED GFR > 60; GLUCOSE 130 mg/dL (70-104); POTASSIUM 4.8 mmol/L (3.5-5.1); SODIUM 137 mmol/L (136-145); TCO2 27 mmol/L (25-35)
[2019-05-10] MEDS: PULMICORT INH SCH ×2 (08:03→19:44)
[2019-05-10] MEDS: ATIVAN PO SCH (09:57)
[2019-05-10] MEDS: ROBAXIN PO SCH ×3 (09:57→19:03)
[2019-05-10] MEDS: SUBOXONE 8 MG/2 MG SL SCH ×2 (09:57→19:02)
[2019-05-10] MEDS: ZITHROMAX 500 MG/NS 500 MG/250 ML IVPB IV SCH (09:58)
[2019-05-10] MEDS: SINGULAIR PO SCH (09:58)
--- NOTE | 2019-05-10 16:13 | PROGRESS NOTE ---
DATE: 05/10/2019 INTERVAL HISTORY: The patient still with dyspnea on exertion but no further dyspnea at rest. Oxygen requirements decreasing significantly. ABG this morning looking pretty good. No new complaints. No acute events overnight. REVIEW OF SYSTEMS: Twelve point review of systems negative except as per interval history. LABS: WBC 16.3, hemoglobin 14.0, hematocrit 42.9, and platelets 198,000. ABG with pH 7.42, pCO2 44, PO2 103 on 3 L by nasal cannula. Basic metabolic panel unremarkable aside from glucose 130. VITALS: T-max 98.7 degrees, pulse 99, respirations 21, blood pressure 114/60, O2 saturation 96% on 3 L by nasal cannula. PHYSICAL EXAMINATION: General: No acute distress. Vitals: As above. HEENT: Normocephalic, atraumatic. Moist mucous membranes. No cervical adenopathy. Cardiovascular: Slightly tachycardic at the time of my exam, but regular. No murmurs noted. Pulmonary: Still with moderate expiratory wheezing throughout but still good air entry. No accessory muscle use or increased work of breathing. Abdomen: Soft, nontender, nondistended. Bowel sounds positive. Extremities: Peripheral pulses intact. No clubbing, cyanosis, or edema. Neurologic: Cranial nerves grossly intact. No focal deficits identified. Psychiatric: Normal mood and affect. Awake, alert, oriented x3. Skin: No new rashes or lesions identified. ASSESSMENT AND PLAN: 1. Acute hypoxic respiratory failure, asthma exacerbation. Patient's hypercapnia remains resolved. Oxygenation improving slowly. Still some room to wean, but not sure we have enough room to get him off oxygen today. Still some wheezing but does appear to be improving overall. We will begin weaning steroids. Continue nebs. Pulmonology following. We will see if they have any other recommendations. 2. Tobacco abuse. Patient has been counseled on cessation. 3. Medication noncompliance. The importance of compliance again emphasized to patient especially as regards to his inhalers. 4. Chronic pain. Continue home Suboxone. 5. Anxiety. Continue home Ativan. 6. Still holding home amphetamine. Ativan, amphetamine, and Suboxone prescriptions confirmed in PDMP. DISPOSITION: The patient improving. Still requiring some oxygen and with fairly significant wheezing. Continue intravenous steroids and nebulizers one more day but if he continues to improve, may be able to go home in the next 24 to 48 hours.
[2019-05-11] MEDS: ALBUTEROL NEB INH SCH ×6 (03:24→23:46)
[2019-05-11] MEDS: PULMICORT INH SCH ×2 (08:40→19:32)
[2019-05-11] MEDS: ATIVAN PO SCH (09:12)
[2019-05-11] MEDS: ROBAXIN PO SCH ×3 (09:12→17:27)
[2019-05-11] MEDS: SUBOXONE 8 MG/2 MG SL SCH ×2 (09:12→16:13)
[2019-05-11] MEDS: SINGULAIR PO SCH (09:12)
[2019-05-11] MEDS: SOLU-MEDROL IV SCH ×2 (09:16→20:53)
[2019-05-11] MEDS: ZITHROMAX 500 MG/NS 500 MG/250 ML IVPB IV SCH (13:09)
--- NOTE | 2019-05-11 17:17 | PROGRESS NOTE ---
DATE: 05/11/2019 INTERVAL HISTORY: The patient continues to have slow improvement in wheezing, dyspnea, and O2 requirements. Still on 2 to 3 L today, but with slowly improving oxygenation. Still some slight wheezing, but this is also improving. Beginning to ambulate a little. No new complaints. No acute events overnight. REVIEW OF SYSTEMS: Twelve-point review of systems negative except as per interval history. PHYSICAL EXAMINATION: vital signs: T-max 98.3 degrees, pulse 83, respirations 16, blood pressure 133/61, and O2 saturation 94% on 3 L by nasal cannula. General: No acute distress. HEENT: Normocephalic, atraumatic. Moist mucous membranes. No cervical adenopathy. Cardiovascular: Regular rate and rhythm. No murmurs noted. Pulmonary: Still with some expiratory wheeze, although improved from previous. Good air entry. No accessory muscle use or increased work of breathing. Abdomen: Soft, nontender, nondistended. Bowel sounds positive. Extremities: Peripheral pulses intact. No clubbing, cyanosis, or edema. Neurologic: Cranial nerves grossly intact. No focal deficits identified. Psychiatric: Normal mood and affect. Awake, alert, and oriented x3. Skin: No new rashes or lesions identified. ASSESSMENT AND PLAN: 1. Acute hypoxic respiratory failure, asthma exacerbation. The patient's hypercapnia resolved on last check. Oxygenation improving slowly although he is still requiring some oxygen. We will continue to wean oxygen as possible. Wean steroids further. Continue nebulizers. The patient is relatively comfortable, so whenever we can get him off oxygen he can likely be discharged, hopefully within the next 24 to 48 hours. 2. Tobacco abuse. The patient has been counseled on cessation. 3. Medical noncompliance. The importance of compliance with the patient's medications and inhalers again emphasized to the patient. 4. Chronic pain. Continue home Suboxone. 5. Anxiety. Continue home Ativan. 6. Holding home amphetamines.
[2019-05-12] MEDS: ALBUTEROL NEB INH SCH ×2 (03:07→08:17)
[2019-05-12 07:17] LABS: BASO# 0.02 X1000 (0.0-0.2); BASO% 0.2 % (0.0-0.8); EOS# 0.01 X1000 (0.0-0.7); EOS% 0.1 % (0.0-10.0); HEMATOCRIT 43.4 % (42.0-52.0); HEMOGLOBIN 14.2 g/dL (14.0-18.0); IMM GRAN# 0.19 X1000 (0.0-0.04); IMM GRAN% 1.6 % (0.0-0.5); LYMPH# 1.88 X1000 (1.2-3.4); LYMPH% 15.6 % (20.5-51.1); MCHC 32.7 g/dL (33-37); MCV 88.6 FL (81-99); MONO# 1.01 X1000 (0.11-0.59); MONO% 8.4 % (1.7-9.3); MPV 11.3 FL (7.4-10.4); NEUT# 8.92 X1000 (1.4-6.5); NEUT% 74.1 % (42.2-75.2); PLT 205 X1000 (130-400); WBC 12.03 X1000 (4.8-10.8)
[2019-05-12 07:41] VITALS: BP 136/79
[2019-05-12 07:45] LABS: AGAP 11; BUN 17 mg/dL (8-22); CALCIUM 8.8 mg/dL (8.8-10.2); CHLORIDE 101 mmol/L (98-107); COSMO 280; CREATININE 0.6 mg/dL (0.7-1.2); ESTIMATED GFR > 60; GLUCOSE 106 mg/dL (70-104); POTASSIUM 4.5 mmol/L (3.5-5.1); SODIUM 139 mmol/L (136-145); TCO2 27 mmol/L (25-35)
[2019-05-12] MEDS: PULMICORT INH SCH (08:17)
[2019-05-12] MEDS: ROBAXIN PO SCH (09:09)
[2019-05-12] MEDS: ATIVAN PO SCH (09:10)
[2019-05-12] MEDS: SINGULAIR PO SCH (09:10)
[2019-05-12] MEDS: SOLU-MEDROL IV SCH (09:10)
[2019-05-12] MEDS: SUBOXONE 8 MG/2 MG SL SCH (09:10)
--- NOTE | 2019-05-12 14:11 | DISCHARGE SUMMARY ---
ADMISSION DATE: 05/08/2019 DISCHARGE DATE: 05/12/2019 PRIMARY CARE PROVIDER: None. PERTINENT PROCEDURES: Initial chest x-ray, hyperinflation consistent with asthma. No evidence of acute disease otherwise. DISCHARGE DIAGNOSES: 1. Severe asthma exacerbation. Followed by Dr. Cloud with pulmonology. He was initiated on supplemental oxygen, steroids, antibiotics, and a bronchodilator regimen. 2. Hypereosinophilia. Aware. 3. Status asthmaticus. 4. Noncompliance with asthma medications. 5. Acute hypoxemic respiratory failure secondary to #1. 6. tobacco abuse HOSPITAL COURSE: Briefly, Mr. Mcclure is a 38-year-old gentleman known to our service for asthma exacerbations requiring intubation in the past. He came to the ED reporting 2 days of increased shortness of breath and wheezing. He initially started having relief with his home inhalers. However, throughout the morning, his exacerbations continue to increase and he was not able to control it. On arrival to the ED, he was found to have O2 saturations on room air at 88%. He was placed on nasal cannula, had to be bumped up to a nonrebreather. His chest x- ray showed hyperinflation, consistent with asthma, but no pneumonia. He was given high- dose steroids, magnesium sulfate, Xopenex, ipratropium bromide, albuterol, and DuoNebs. He reported initially some improvement. However, he was sitting straight up in the bed in a tripod position with audible wheezes, inspiratory and expiratory, was requesting to have another breathing treatment. He was admitted to the ICU with a pulmonary consult. He was monitored by pulmonology. They added a macrolide to cover for atypical infections and he continued to do education on abstinence from tobacco and drug use. He was able to move out of the ICU down to the regular floor. He has also been educated on medical noncompliance with his inhalers and medications, and is being discharged back home today. VITAL SIGNS: At the time of discharge, temperature is 97.9 degrees, heart rate 74, respirations 20, blood pressure 136/79, O2 is 96% on room air. DISCHARGE DIET: Regular. DISCHARGE MEDICATIONS: 1. Lorazepam 2 mg p.o. daily. 2. Methocarbamol 750 mg p.o. t.i.d. 3. Mydayis ER 50 mg p.o. daily. 4. Suboxone 8 mg/2 mg sublingual 1 film sublingual b.i.d. 5. Ventolin inhaler 2 puffs inhaled as directed. 6. Asmanex 110 mcg inhaler one puff inhaled b.i.d. 7. DuoNebs 3 mL inhaled q.4 hours p.r.n. 8. Medrol Dosepak 4 mg p.o. as directed x1 package. 9. Singulair 10 mg p.o. daily. 10. Wellbutrin SR 150 mg p.o. b.i.d. FOLLOWUP: Mr. Mcclure is being discharged back home with self care. He has been educated to take all medications as prescribed. He has been educated to stop smoking as well as any drug use. He can return to the ED or call 911 for any worsening of symptoms. Dictated by ADAN Miramontes for Lucien Vallecillo MD Agree with the above. the following is my own face to face assessment. no further wheezing, good air entry on lung exam. stable for discharge home to follow up with pcp and pulmonology. BRUCE
--- NOTE | 2019-05-13 11:27 | EKG Report ---
Test Performed on : 05/08/2019 05:25:02 AM Test Reason : ED. No order in [place] Blood Pressure : / mmHG Vent. Rate : 115 BPM Atrial Rate : 115 BPM P-R Int : 136 ms QRS Dur : 072 ms QT Int : 308 ms P-R-T Axes : 095 -76 070 degrees QTc Int : 426 ms Sinus tachycardia. Biatrial enlargement Left axis deviation Pulmonary disease pattern Septal infarct , age undetermined Abnormal ECG When compared with ECG of 27-JUL-2018 06:48, Sinus rhythm. has replaced Junctional rhythm. ST now depressed in Inferior leads Unconfirmed Result
== END 2019-05-12 11:39 | disposition home or self-care (01) | DRG 202 ==
LOC: SUPCPDRO → ED 05:11 → ICU 05:11 → OBSVTOIN 05:12 → SUATTDRO 05:12 → 3N 05-09 14:24
PROVIDERS: ATTEND Internal Medicine
CPT/HCPCS: 71010; 71045; 80048; 80053; 80101; 80301; 80307; 80324; 80345; 80346; 80353; 80358; 80361; 80365; 82805; 83992; 85025; 93005; 94640; 94761; 94799; 96365; 96375; 99285; A9270; G0431; G0434; G0479; G0480; J0456; J2920; J2930; J3475; J7030

== ENCOUNTER 2020-01-22 04:16 | Inpatient (IN) ==
[2020-01-22] MEDS ORDERED: AMIDATE ONE ×2 (04:31→04:49)
[2020-01-22] MEDS ORDERED: QUELICIN ONE (04:32)
[2020-01-22] MEDS ORDERED: NS 1,000 ML ONE (04:37)
[2020-01-22] MEDS ORDERED: DIPRIVAN 1% 1,000 MG/100 ML BOTTLE ONE (04:39)
[2020-01-22 04:47] LABS: BASO# 0.09 X1000 (0.0-0.2); BASO% 0.8 % (0.0-0.8); EOS# 0.75 X1000 (0.0-0.7); HEMATOCRIT 49.1 % (42.0-52.0); HEMOGLOBIN 15.7 g/dL (14.0-18.0); IMM GRAN# 0.02 X1000 (0.0-0.04); IMM GRAN% 0.2 % (0.0-0.5); LYMPH# 2.81 X1000 (1.2-3.4); LYMPH% 26.1 % (20.5-51.1); MCH 28.6 PG (27-31); MCV 89.4 FL (81-99); MONO# 0.86 X1000 (0.11-0.59); MPV 11.5 FL (7.4-10.4); NEUT# 6.23 X1000 (1.4-6.5); NEUT% 57.9 % (42.2-75.2); PLT 215 X1000 (130-400); RBC 5.49 XMIL (4.7-6.1); RDW 14.3 % (11.5-14.5); WBC 10.76 X1000 (4.8-10.8)
[2020-01-22] MEDS: DIPRIVAN 1% 1,000 MG/100 ML BOTTLE IV SCH ×6 (04:50→23:42)
[2020-01-22 04:57] LABS: INR 0.96; PROTIME 12.8 Seconds (11.0-16.0); PTT 26.9 Seconds (22.3-41.8)
--- NOTE | 2020-01-22 05:04 | PROVIDER DOCUMENTATION ---
HPI-Respiratory General - General Chief Complaint: Shortness of Breath Stated Complaint: sob Time Seen by Provider: 01/22/20 04:59 Source: patient, EMS Allergies/Adverse Reactions: Patient Allergies Allergy/AdvReac Type Severity Reaction Status Date / Time No Known Allergies Allergy Verified 01/22/20 05:40 Home Medications: Home Medication List Medication Instructions Recorded Confirmed Last Taken Type Albuterol Sulfate Inhaler 2 puff IH DIRECTED PRN 11/11/15 05/08/19 07/06/18 01:00 History [Ventolin Hfa] Buprenorphine HCl/Naloxone HCl 1 film SL BID 01/24/19 05/08/19 Unknown History [Suboxone 8 mg/2 mg Sl Film] Dextroamphetamine/Amphetamine 50 mg PO DAILY 01/24/19 05/08/19 Unknown History [Mydayis ER 50 mg Capsule] Lorazepam 2 mg PO DAILY 01/24/19 05/08/19 Unknown History Methocarbamol 1 tab PO TID 01/24/19 05/08/19 Unknown History Albuterol 2.5MG/Ipratrop 0.5MG 3 ml INH Q4H PRN #30 neb 04/10/19 05/08/19 Unknown Rx [Duoneb (A & A)] Montelukast [Singulair] 10 mg PO DAILY #30 tab 04/10/19 05/08/19 Unknown Rx Bupropion S.r. [Wellbutrin Sr] 150 mg PO BID #60 tab 05/12/19 Unknown Rx Methylprednisolone [Medrol Dosepak] 4 mg PO DIRECTED #1 pkg 05/12/19 Unknown Rx Mometasone Furoate 110 Mcg INH 1 puff INH RTBID #1 inhaler 05/12/19 Unknown Rx [Asmanex 110 Microgm Inhaler] - History of Present Illness-Resp Nature of Presenting Problem: Patient presents via EMS in respiratory distress. Has h/o asthma and states that he has been taking hie meds but became increasingly short of breath 2 days ago. Has h/o severe asthma exacerbation requiring intubation in the past. EMS notes initial O2 sat in 50s, improved to 80s with NRB mask and neb treatment x 1. Quality of Pain: reports: none Severity in ED: reports: severe Onset/Duration: reports: 2 days ago Timing: reports: getting worse Context: denies: recent foreign travel, insect bite (possible tick), recent chemotherapy, multiple patients with similar complaints, recent URI, out of meds, sports/exercise, aspiration/choking, other Exposure: reports: unknown cause Cough Quality/Degree: reports: severe, dry cough Episode Frequency: chronic episodes Current Respiratory Medication Therapy: Initiated albuterol/atrovent inhale Associated Symptoms: reports: cough, short of breath Similar Symptoms Previously?: Yes Recently seen or treated by another doctor?: No Review of Systems - Adult - REVIEW OF SYSTEMS - ADULT Constitutional: reports: no symptoms reported Eyes: reports: no symptoms reported Ears, Nose, Mouth & Throat: reports: no symptoms reported Cardiovascular: reports: no symptoms reported Respiratory: reports: see HPI Gastrointestinal: reports: no symptoms reported Genitourinary: reports: no symptoms reported Musculoskeletal: reports: no symptoms reported Integumentary: reports: no symptoms reported Neurological: reports: no symptoms reported Psychiatric: reports: no symptoms reported Endocrine: reports: no symptoms reported Hematologic/Lymphatic: reports: no symptoms reported Allergic/Immunologic: reports: no symptoms reported All Other Systems: Reviewed and Negative Past History - Adult - PAST MEDICAL HISTORY-ADULT Review of Records: reports: Old Records Reviewed, Nursing Assessment Review, Medications Reviewed, Social history reviewed & non-contributory. Major Childhood Illnesses: reports: denies history Cardiovascular: reports: denies history Respiratory: reports: asthma (Has been intubated in the past), pneumonia Gastrointestinal: reports: denies history Obstetrical/Gynecological: reports: denies history Genitourinary: reports: denies history Musculoskeletal: reports: denies history Neurological: reports: denies history Psychiatric: reports: anxiety Endocrine/Immune: reports: denies history Other Conditions: reports: denies history, other (Chronic pain, opioid dependence) - PRIOR SURGERIES/PROCEDURES Surgical/Procedure History: reports: none - IMMUNIZATION STATUS Childhood Immunizations: UTD Flu Vaccine: NUTD - FAMILY HISTORY Family History: reviewed, not pertinent Physical Exam-General - PHYSICAL EXAM-ADULT Initial Vital Signs Reviewed: Yes - CONSTITUTIONAL General Appearance: appears well, alert, severe distress, other (unable to speak in complete sentences without being breathless.) - EYES Eyes: PERRL/EOMI - HEAD, EARS, NOSE, MOUTH & THROAT HENMT: normocephalic/atraumatic - NECK Neck: non-tender, full range of motion - RESPIRATORY Respiratory: decreased breath sounds, accessory muscle use, wheezing, retractions - CARDIOVASCULAR Cardiovascular: tachycardia - GASTROINTESTINAL (ABDOMEN) Abdominal Exam: non tender, soft - LYMPHATIC Lymphatic: no adenopathy - MUSCULOSKELETAL Back Exam: normal inspection Extremity: normal inspection - SKIN Integumentary: normal color, normal turgor, diaphoresis - NEUROLOGIC Neurologic: grossly normal - HEART Score HEART Score: History: Slightly Suspicious HEART Score: ECG: Normal HEART Score: Age: < or = 45 Years HEART Score: Risk Factors for Atherosclerotic Disease: No Risk Factors Known HEART Score: Troponin: < or = Normal Limit Total HEART Score:: 0 Progress - PLAN OF CARE/RESULTS Progress/Plan/Lab Results: Vital Signs - 8 hr 01/22/20 04:16 01/22/20 05:20 01/22/20 05:25 Temperature 97.9 F Pulse Rate 109 H 108 H 110 H Respiratory Rate 28 H 20 20 Blood Pressure 116/88 92/78 79/59 O2 Sat by Pulse Oximetry 99 98 98 01/22/20 05:30 01/22/20 05:35 01/22/20 05:40 Temperature Pulse Rate 109 H 107 H 106 H Respiratory Rate 20 22 20 Blood Pressure 87/72 102/75 101/75 O2 Sat by Pulse Oximetry 100 98 99 01/22/20 05:45 01/22/20 05:50 01/22/20 05:55 Temperature 98.6 F Pulse Rate 104 H 100 H 100 H Respiratory Rate 20 20 20 Blood Pressure 90/69 114/73 113/79 O2 Sat by Pulse Oximetry 99 99 99 01/22/20 06:00 01/22/20 06:05 Temperature 98.9 F Pulse Rate 99 H 96 H Respiratory Rate 20 20 Blood Pressure 96/80 113/82 O2 Sat by Pulse Oximetry 100 100 Laboratory Results - last 24 hr 01/22/20 01/22/20 01/22/20 04:22 04:22 04:22 WBC RBC Hgb Hct MCV MCH MCHC RDW Std Deviation Plt Count MPV Immature Gran % (Auto) Neut % (Auto) Lymph % (Auto) Valencia % (Auto) Eos % (Auto) Baso % (Auto) Immature Gran # (Auto) Neut # (Auto) Lymph # (Auto) Valencia # (Auto) Eos # (Auto) Baso # (Auto) PT INR PTT (Actin FS) Specimen Type Sample Site pH pCO2 pO2 HCO3 Base Excess Oxyhemoglobin ABG O2 Sat (Calculated) ABG O2 Saturation ABG Carboxyhemoglobin ABG Methemoglobin Josue Test A-a O2 Difference Total Hemoglobin Lactate Blood Gas Modality Spontaneous Rate FiO2 % Tidal Volume PEEP Sodium 142 Potassium 4.4 Chloride 101 Carbon Dioxide 30 Anion Gap 11 BUN 10 Creatinine 0.7 Estimated GFR/1.73 m2 > 60 BUN/Creatinine Ratio 14 Glucose 126 H Calculated Osmolality 284 Calcium 8.9 Total Bilirubin 0.38 AST 25 ALT 24 Alkaline Phosphatase 87 Creatine Kinase 256 H Creatine Kinase Index 3.0 H CK-MB (CK-2) 7.57 H Troponin T High Sens < 6 Total Protein 7.9 Albumin 4.8 Globulin 3.1 Albumin/Globulin Ratio 1.5 Plasma Lactate 1.5 Urine Source Urine Color Urine Turbidity Urine pH Ur Specific Levering Urine Protein Ur Glucose (Stick) Ur Ketones (Stick) Urine Blood Urine Nitrite Urine Bilirubin Urobilinogen Dipstick Urine Leukocytes Urine WBC (Auto) Urine RBC (Auto) U Epithel Cells (Auto) Urine Bacteria (Auto) Urine Crystals Small Round Cells Urine Casts Urine Yeast-like Cells 01/22/20 01/22/20 01/22/20 04:22 04:22 05:13 WBC 10.76 RBC 5.49 Hgb 15.7 Hct 49.1 MCV 89.4 MCH 28.6 MCHC 32.0 L RDW Std Deviation 14.3 Plt Count 215 MPV 11.5 H Immature Gran % (Auto) 0.2 Neut % (Auto) 57.9 Lymph % (Auto) 26.1 Valencia % (Auto) 8.0 Eos % (Auto) 7.0 Baso % (Auto) 0.8 Immature Gran # (Auto) 0.02 Neut # (Auto) 6.23 Lymph # (Auto) 2.81 Valencia # (Auto) 0.86 H Eos # (Auto) 0.75 H Baso # (Auto) 0.09 PT 12.8 INR 0.96 PTT (Actin FS) 26.9 Specimen Type Sample Site pH pCO2 pO2 HCO3 Base Excess Oxyhemoglobin ABG O2 Sat (Calculated) ABG O2 Saturation ABG Carboxyhemoglobin ABG Methemoglobin Josue Test A-a O2 Difference Total Hemoglobin Lactate Blood Gas Modality Spontaneous Rate FiO2 % Tidal Volume PEEP Sodium Potassium Chloride Carbon Dioxide Anion Gap BUN Creatinine Estimated GFR/1.73 m2 BUN/Creatinine Ratio Glucose Calculated Osmolality Calcium Total Bilirubin AST ALT Alkaline Phosphatase Creatine Kinase Creatine Kinase Index CK-MB (CK-2) Troponin T High Sens Total Protein Albumin Globulin Albumin/Globulin Ratio Plasma Lactate Urine Source CATH Urine Color ORANGE Urine Turbidity TURBID Urine pH 5.5 Ur Specific [place] 1.026 Urine Protein 200 A Ur Glucose (Stick) NEGATIVE Ur Ketones (Stick) NEGATIVE Urine Blood LARGE A Urine Nitrite NEGATIVE Urine Bilirubin NEGATIVE Urobilinogen Dipstick NORMAL Urine Leukocytes NEGATIVE Urine WBC (Auto) TNTC A Urine RBC (Auto) TNTC A U Epithel Cells (Auto) >10 A Urine Bacteria (Auto) NEGATIVE Urine Crystals Not Reportable Small Round Cells Not Reportable Urine Casts NONE SEEN Urine Yeast-like Cells NONE SEEN 01/22/20 05:58 WBC RBC Hgb Hct MCV MCH MCHC RDW Std Deviation Plt Count MPV Immature Gran % (Auto) Neut % (Auto) Lymph % (Auto) Valencia % (Auto) Eos % (Auto) Baso % (Auto) Immature Gran # (Auto) Neut # (Auto) Lymph # (Auto) Valencia # (Auto) Eos # (Auto) Baso # (Auto) PT INR PTT (Actin FS) Specimen Type ARTERIAL Sample Site R BRACHIAL pH 7.21 L pCO2 72 H* pO2 472 H HCO3 24.0 Base Excess -1.2 Oxyhemoglobin 97.8 ABG O2 Sat (Calculated) 21.9 ABG O2 Saturation 100.6 H ABG Carboxyhemoglobin 1.60 ABG Methemoglobin 1.2 Josue Test YES A-a O2 Difference 151.0 Total Hemoglobin 15.0 Lactate 0.90 Blood Gas Modality VENTILATOR Spontaneous Rate 20 FiO2 % 100.0 Tidal Volume 500 PEEP 5.0 Sodium Potassium Chloride Carbon Dioxide Anion Gap BUN Creatinine Estimated GFR/1.73 m2 BUN/Creatinine Ratio Glucose Calculated Osmolality Calcium Total Bilirubin AST ALT Alkaline Phosphatase Creatine Kinase Creatine Kinase Index CK-MB (CK-2) Troponin T High Sens Total Protein Albumin Globulin Albumin/Globulin Ratio Plasma Lactate Urine Source Urine Color Urine Turbidity Urine pH Ur Specific Levering Urine Protein Ur Glucose (Stick) Ur Ketones (Stick) Urine Blood Urine Nitrite Urine Bilirubin Urobilinogen Dipstick Urine Leukocytes Urine WBC (Auto) Urine RBC (Auto) U Epithel Cells (Auto) Urine Bacteria (Auto) Urine Crystals Small Round Cells Urine Casts Urine Yeast-like Cells Orders Category Date Time Status Cardiac Monitoring NOW Care 01/22/20 04:27 Active Richardson Cath Insertion ORDERED Care 01/22/20 06:03 Active IV Insertion NOW Care 01/22/20 04:27 Completed NEWS Score >or=5:Order NEWS Bundle S.O. NOW Care 01/22/20 04:26 Active Neurological Check Q12-HR ASSESS Care 01/22/20 05:51 Active Notify Provider of NEWS Score NOW Care 01/22/20 04:27 Active Nursing [Misc. NRSG Communication Order] DIRECTED Care 01/22/20 06:12 Active Restraint Initiate NonViolent ONCE Care 01/22/20 06:31 Active CHEST-1 VIEW [RAD] Stat Exams 01/22/20 04:27 Taken ABG [RESP] Routine Lab 01/22/20 05:58 Completed BLOOD CULTURE [BLDCUL] Stat Lab 01/22/20 04:22 Results CBC WITH DIFF [HEME] Stat Lab 01/22/20 04:22 Completed CK PROFILE [SP CHEM] Stat Lab 01/22/20 04:22 Completed COMPREHENSIVE METABOLIC PANEL [CHEM] Stat Lab 01/22/20 04:22 Completed Flu Swab [INFLUENZA SCREEN A/B] Stat Lab 01/22/20 06:21 Uncollected LACTATE, PLASMA [CHEM] Lab 01/22/20 04:22 Completed LACTATE, PLASMA [CHEM] Lab 01/22/20 07:30 Uncollected LACTATE, PLASMA [CHEM] Lab 01/22/20 10:30 Uncollected PROTIME WITH INR [COAG] Stat Lab 01/22/20 04:22 Completed PTT [COAG] Stat Lab 01/22/20 04:22 Completed TROPONIN T HIGH SENSITIVITY Stat Lab 01/22/20 04:22 Completed URINALYSIS W/POSS RFLX CULT [URINALYSIS] Stat Lab 01/22/20 05:13 Results URINE MANUAL MICROSCOPIC [URINALYSIS] Stat Lab 01/22/20 05:13 Results 0.9% Sodium Chloride Inj [Ns] 1,000 ml Med 01/22/20 04:37 Discontinued .ROUTE As directed Etomidate [Amidate] Med 01/22/20 04:31 Discontinued 40 mg .ROUTE .STK-MED ONE Etomidate [Amidate] Med 01/22/20 04:49 Discontinued 40 mg .ROUTE .STK-MED ONE Etomidate [Amidate] Med 01/22/20 05:38 Discontinued 40 mg IV NOW ONE Etomidate [Amidate] Med 01/22/20 05:44 Discontinued 40 mg IV NOW ONE Levaquin 750 mg/D5w IV Now Med 01/22/20 06:27 Ordered Levofloxacin 750 mg/D5w [Levaquin 750 mg/D5w] 750 mg in 150 ml IV NOW Midazolam [Versed] Med 01/22/20 05:45 Discontinued 2 mg IV NOW ONE Midazolam [Versed] Med 01/22/20 05:24 Discontinued 5 mg .ROUTE .STK-MED ONE Propofol [Diprivan 1%] Med 01/22/20 05:51 Discontinued 10 mg IV STAT STA Propofol [Diprivan 1%] Med 01/22/20 05:21 Discontinued 100 mg IV STAT ONE Propofol [Diprivan 1%] Med 01/22/20 05:09 Discontinued 200 mg .ROUTE .STK-MED ONE Propofol [Diprivan 1%] Med 01/22/20 04:39 Discontinued 1,000 mg in 100 ml .ROUTE As directed Propofol [Diprivan 1%] Med 01/22/20 06:00 Active 1,000 mg in 100 ml IV As Directed mls/hr Succinylcholine [Quelicin] Med 01/22/20 04:32 Discontinued 200 mg .ROUTE .STK-MED ONE Succinylcholine [Quelicin] Med 01/22/20 05:38 Discontinued 80 mg IV NOW ONE Succinylcholine [Quelicin] Med 01/22/20 05:44 Discontinued 80 mg IV NOW ONE O2 Per Protocol Stat Oth 01/22/20 04:27 Active Result Diagrams: 01/22/20 04:22 01/22/20 04:22 - CONSULTS/PCP/HOSPITALIST Notification #1 *Consult/PCP/Hospitalist*: Hospitalist Services Time Discussed: 06:30 Consult Disposition: Admit Procedures - INTUBATION Time of Intubation: 04:30 Intubation Method: orotracheal Equipment: Glidescope Tube Size (cm): 7.5 Pretreated with 100% Oxygen?: Yes Breath Sounds after Intubation: equal ETT Primary Tube Confirmation: Capnometry CO2 Change, Direct Visualization, Chest Rise and Fall Intubation Complications: no complications Vent Settings: See Respiratory Therapy Notes Departure - Departure Date of Disposition Decision: 01/22/20 Time of Disposition Decision: 06:47 DIAGNOSIS: Respiratory distress Asthma with bronchitis and status asthmaticus Qualifiers: Asthma severity: severe Asthma persistence: persistent Qualified Code(s): J45.52 - Severe persistent asthma with status asthmaticus Disposition: ADMITTED INPATIENT 09 Certified Medical Emergency: Emergent Condition: Stable Referrals and Follow-Ups: UNKNOWN, [Primary Care Provider] - - Critical Care Note This patient required my direct & personal management of CC.: Yes Attestation - Physician/ SANDEEP Attestation Patient care was provided by Advanced Practice Provider:: No The physician spent face to face time with patient:: Yes Advanced Practice Provider documentation review:: Supervising physician onsite and consulted in the evaluation and care of this patient. The physician did have a face to face encounter with the patient.
[2020-01-22 05:07] LABS: AGAP 11; ALB/GLOB RATIO 1.5; ALBUMIN 4.8 g/dL (3.5-5.0); ALKALINE PHOSPHATASE 87 U/L (32-122); BUN 10 mg/dL (8-22); CALCIUM 8.9 mg/dL (8.8-10.2); CHLORIDE 101 mmol/L (98-107); COSMO 284; CREATININE 0.7 mg/dL (0.7-1.2); ESTIMATED GFR > 60; GLUCOSE 126 mg/dL (70-104); GOT 25 U/L (10-34); GPT 24 U/L (10-44); POTASSIUM 4.4 mmol/L (3.5-5.1); SODIUM 142 mmol/L (136-145); TCO2 30 mmol/L (25-35); TOTAL BILIRUBIN 0.38 mg/dL (0.20-1.00); TOTAL PROTEIN 7.9 g/dL (6.3-8.3)
[2020-01-22] MEDS ORDERED: DIPRIVAN 1% ONE (05:09)
[2020-01-22 05:11] LABS: CK PROFILE 256 U/L (24-204)
[2020-01-22 05:20] LABS: URINE SOURCE CATH
[2020-01-22] MEDS ORDERED: DIPRIVAN 1% IV ONE (05:21)
[2020-01-22] MEDS ORDERED: VERSED IV ONE ×2 (05:21→05:45)
[2020-01-22] MEDS ORDERED: VERSED ONE (05:24)
[2020-01-22] MEDS ORDERED: AMIDATE IV ONE ×2 (05:38→05:44)
[2020-01-22] MEDS ORDERED: QUELICIN IV ONE ×2 (05:38→05:44)
[2020-01-22 05:41] LABS: CK-MB 7.57 ng/mL (0.0-5.0)
[2020-01-22] MEDS ORDERED: DIPRIVAN 1% IV STA (05:51)
[2020-01-22 05:59] LABS: BILIRUBIN URINE NEGATIVE (NEGATIVE); BLOOD URINE LARGE (NEGATIVE); COLOR ORANGE; GLUCOSE URINE NEGATIVE (NEGATIVE); KETONE URINE NEGATIVE (NEGATIVE); LEUKOCYTES URINE NEGATIVE (NEGATIVE); NITRITE URINE NEGATIVE (NEGATIVE); PH URINE 5.5; PROTEIN URINE 200 mg/dL (NEGATIVE); SP GRAVITY URINE 1.026; TURBIDITY URINE TURBID (CLEAR); UROBILINOGEN URINE NORMAL (NORMAL)
[2020-01-22 06:02] LABS: ALLEN TEST YES; BE -1.2 mmoll (-3.0-3.0); BLOOD TYPE ARTERIAL; METHB 1.2 % (0.0-1.5); O2(CT) 21.9 mL/dL (15.0-23.0); O2HB 97.8 % (95.0-99.0); PO2(98.6) 472 mmHg (60-100); SAMPLE BLOOD; SAO2 100.6 % (95.0-100.0); SRATE 20 BPM; TVOL 500 mL; pH(98.6) 7.21 (7.35-7.45)
[2020-01-22 06:03] LABS: MODALITY VENTILATOR
[2020-01-22 06:06] LABS: PCO2(98.6) 72 mmHg (35-45)
[2020-01-22 06:13] LABS: UR EPITHELIAL CELLS >10 /HPF (<10); URINE BACTERIA NEGATIVE /HPF; URINE RBC TNTC /HPF (<10); URINE WBC TNTC /HPF (<10)
[2020-01-22] MEDS ORDERED: LEVAQUIN 750 MG/D5W 750 MG/150 ML IVPB IV ONE (06:27)
[2020-01-22 06:41] LABS: URINE YEAST NONE SEEN
[2020-01-22 06:42] LABS: URINE CASTS NONE SEEN
--- NOTE | 2020-01-22 07:01 | Diag Imaging Result Doc PS360 ---
EXAM: CHEST-1 VIEW 01/22/2020 HISTORY: sob TECHNIQUE: AP portable at 0521 COMMENT: There is an endotracheal tube with its tip slightly below the thoracic inlet and an NG tube which passes below the diaphragm. There is hyperinflation of the lungs. Compared to 05/09/2019 the lungs are more hyperinflated. IMPRESSION: Exacerbation of COPD/asthma. Electronically signed by Israel Burns 01/22/2020 6:58 AM
[2020-01-22] MEDS ORDERED: DUONEB (A & A) INH PRN (07:04)
[2020-01-22] MEDS ORDERED: NS 1,000 ML IV SCH (07:45)
--- NOTE | 2020-01-22 07:52 | HISTORY AND PHYSICAL ---
CHIEF COMPLAINT: Shortness of breath. HISTORY OF PRESENT ILLNESS: Mr. Varun Mcclure is a 39-year-old male, who has a history of bronchial asthma, and presents to the hospital because of shortness of breath. The patient was noted to be in acute respiratory failure and was subsequently intubated and placed on mechanical ventilation in the emergency room. The patient is also currently being sedated. He will be transferred to the intensive care unit for further management. PAST MEDICAL HISTORY: Bronchial asthma with history of intubation in the past, allergic rhinitis as well as a chronic pain syndrome. PAST SURGICAL HISTORY: Unremarkable. SOCIAL HISTORY: Patient does have a history of cigarette smoking. ALLERGIES: He is allergic to latex. MEDICATIONS: His medications include the followin. Albuterol inhaler 2 puffs p.r.n. 2. Suboxone 8 mg/2 mg 1 twice a day. 3. Dextroamphetamine/amphetamine 50 mg daily. 4. Lorazepam 2 mg p.o. daily. 5. Methocarbamol one p.o. 3 times a day. 6. DuoNebs 3 mL q. 4 hours p.r.n. 7. Montelukast 10 mg p.o. daily. 8. Bupropion 150 mg p.o. twice a day. 9. Medrol Dosepak as directed. 10. Asmanex 1 puff twice a day. REVIEW OF SYSTEMS: Could not be obtained from the patient. PHYSICAL EXAMINATION: VITAL SIGNS: Vital signs are as follows: Temperature 98.9 degrees, pulse 96, respirations 20, blood pressure 130/82, oxygen saturation 100%. HEENT: Atraumatic, normocephalic. He is anicteric. No oral lesions noted. Has an ET tube in place. NECK: No lymphadenopathy or thyromegaly. CARDIOVASCULAR: S1, S2. RESPIRATORY SYSTEM: Has evidence of rhonchi in both lung devi. ABDOMEN: Soft, nontender. No masses felt. EXTREMITIES: No evidence of significant edema. CENTRAL NERVOUS SYSTEM: Could not be adequately assessed. The patient is currently intubated. LABORATORY DATA: WBC 10.76, hematocrit is 49.1 with a platelet count of 215. INR 0.96. ABG 7.21/72/472/100.6 percent. Sodium is 142, potassium 4.4, chloride is 101, bicarbonate 30. BUN is 10, creatinine 0.7. CK is 256. UA shows large amount of blood with numerous WBCs. Urine drug screen positive for amphetamine. IMAGING STUDIES: Chest x-ray shows evidence of COPD. ASSESSMENT AND PLAN: 1. Acute respiratory failure. Maintain patient on ventilator support. Use Propofol for sedation. Maintain patient on both deep vein thrombosis, as well as gastrointestinal prophylaxis. Adjust ventilator settings based on the patient's arterial blood gases, as well as a clinical condition. 2. Bronchial asthma extubation. Maintain patient on nebulized bronchodilators, steroids, as well as antibiotics. 3. Probable urinary tract infection. Obtain urine and blood cultures. Maintain patient on antibiotics. 4. Chronic pain syndrome. Optimize pain control. 5. Deep vein thrombosis prophylaxis. Lovenox. 6. Gastrointestinal prophylaxis. Proton pump inhibitor. cc: Bryce Solorio MD
[2020-01-22] MEDS: SOLU-MEDROL IV SCH ×3 (08:17→23:41)
[2020-01-22] MEDS: DUONEB (A & A) INH SCH ×5 (09:20→23:15)
[2020-01-22] MEDS ORDERED: PROTONIX IV SCH (09:29)
[2020-01-22] MEDS ORDERED: SODIUM CHLORIDE 0.9% INJ SCH (09:29)
[2020-01-22] MEDS: PROTONIX IV SCH (09:45)
[2020-01-22] MEDS: SODIUM CHLORIDE 0.9% INJ SCH (09:45)
[2020-01-22 11:58] LABS: ALLEN TEST YES; BE 1.7 mmoll (-3.0-3.0); BLOOD TYPE ARTERIAL; HCO3-(ACT) 26.2 mmoll (20.0-26.0); METHB 1.5 % (0.0-1.5); O2(CT) 20.1 mL/dL (15.0-23.0); O2HB 95.2 % (95.0-99.0); PCO2(98.6) 45 mmHg (35-45); PO2(98.6) 83 mmHg (60-100); SAMPLE BLOOD; SAO2 98.4 % (95.0-100.0); SRATE 14 BPM; TVOL 500 mL; pH(98.6) 7.39 (7.35-7.45)
[2020-01-22 11:59] LABS: MODALITY VENTILATOR
[2020-01-22] MEDS: CLINIMIX E 4.25%-5% SOLUTION 1,000 ML IV SCH (12:44)
[2020-01-22] MEDS: MORPHINE IV PRN ×3 (15:05→23:42)
--- NOTE | 2020-01-22 21:39 | PULMONOLOGY CONSULTATION ---
DATE: 01/22/2020 REASON FOR CONSULTATION: Hypoxemic and hypercapnic respiratory failure in an asthmatic. HISTORY OF PRESENT ILLNESS: Mr. Mcclure is a 39-year-old male with history of asthma, multidrug use who presented to the emergency room with asthma exacerbation. The patient's medications were reviewed. He did have his Symbicort filled on 01/18/2020, but I do not see a prescription filled prior to that time. He did have a course of prednisone in October. He has had previous intubations for severe asthma. The patient had an oxygen saturation of 50% upon arrival and had progressive decline requiring intubation and mechanical ventilation. He can give no additional history. PAST MEDICAL HISTORY: 1. Severe asthma with prior intubation. 2. Questionable compliance with medication regimen as outlined above. 3. History of tobacco use. 4. History of polysubstance abuse. FAMILY HISTORY: Not immediately available. REVIEW OF SYSTEMS: Cannot be obtained. PHYSICAL EXAMINATION: General: Reveals a thin white male who appears comfortable on mechanical ventilation. He does have a prolonged expiratory phase. Vital signs: Blood pressure 114/72, heart rate 94, respiratory rate 15, oxygen saturation 99%. HEENT: Pupils are equal and reactive. Oropharynx appears clear. Neck: Supple. Chest: Reveals diffuse wheezing throughout all lung devi. Cardiac Exam: S1 and S2. Abdomen: Soft. Extremities: Without edema. LABORATORIES: White blood count 10.76, hemoglobin 15.7, platelet count 215,000, eosinophilic count 7% or 750 total count. Arterial blood gas after I adjusted mechanical ventilation: pH 7.39, pCO2 of 45, pO2 of 83. IMPRESSION: A 39-year-old with: 1. Status asthmaticus. 2. Acute hypoxemic respiratory failure. 3. Acute hypercapnic respiratory failure. 4. Medical noncompliance. 5. Nicotine addiction with tobacco use. PLAN: 1. Continue full ventilatory support pending improvement in airway dynamics. 2. Continue propofol and p.r.n. morphine for comfort. 3. Continue steroids and antibiotics. 4. Encourage medication compliance and smoking cessation. TIME SPENT IN CRITICAL CARE MANAGEMENT: 1 hour. cc: Yuriy Cloud MD
[2020-01-23] MEDS: MORPHINE IV PRN ×3 (02:11→08:58)
[2020-01-23] MEDS: DIPRIVAN 1% 1,000 MG/100 ML BOTTLE IV SCH ×3 (02:11→08:43)
[2020-01-23] MEDS: CLINIMIX E 4.25%-5% SOLUTION 1,000 ML IV SCH (02:12)
[2020-01-23] MEDS: DUONEB (A & A) INH SCH ×6 (03:05→23:15)
[2020-01-23 05:04] LABS: ALLEN TEST YES; BE 0.7 mmoll (-3.0-3.0); BLOOD TYPE ARTERIAL; HCO3-(ACT) 25.4 mmoll (20.0-26.0); METHB 1.5 % (0.0-1.5); O2(CT) 20.8 mL/dL (15.0-23.0); O2HB 96.7 % (95.0-99.0); PCO2(98.6) 46 mmHg (35-45); PO2(98.6) 129 mmHg (60-100); SAMPLE BLOOD; SAO2 99.6 % (95.0-100.0); SRATE 14 BPM; THB 15.2 g/dL (11.5-17.4); TVOL 500 mL; pH(98.6) 7.37 (7.35-7.45)
[2020-01-23 05:05] LABS: MODALITY VENTILATOR
[2020-01-23] MEDS: SOLU-MEDROL IV SCH ×2 (08:44→16:22)
[2020-01-23] MEDS: PROTONIX IV SCH (08:44)
[2020-01-23] MEDS: SODIUM CHLORIDE 0.9% INJ SCH (08:44)
[2020-01-23] MEDS: LOVENOX SUBQ SCH (08:45)
[2020-01-23] MEDS: LEVAQUIN 500 MG/D5W 500 MG/100 ML IVPB IV SCH (08:45)
[2020-01-23] MEDS ORDERED: LOVENOX SUBQ SCH (09:00)
--- NOTE | 2020-01-23 12:23 | PROGRESS NOTE ---
DATE: 01/23/2020 SUBJECTIVE: Today, Mr. Mcclure refers to be doing well. He just got extubated, and he has transitioned to Venturi mask. He seems to be doing well. He is still slightly altered. OBJECTIVE: Current Vital Signs: Blood pressure 100/59, pulse of 98, respirations 13, temperature 98.8 degrees. General: Mr. Mcclure is a 39-year-old, gentleman. He is in bed. No distress. HEENT: Mucosa is pink and moist. Anicteric. Acyanotic. He is currently on Venturi mask. Chest: Air entry is bilaterally reduced. A few distant wheezing. Cardiovascular: Regular rate and rhythm. Abdomen: Soft. Extremities: No pedal edema. 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 I think part of it was because he was on sedation. LABORATORY DATA: ABG this morning reviewed. No other laboratory data. MICROBIOLOGY: Microbiology data has also been reviewed. Urine culture is negative. ASSESSMENT: 1. Acute respiratory failure. 2. Status asthmaticus. 3. History of asthma with poor outpatient control. 4. Chronic pain syndrome. In general, I think Mr. Mcclure seems to be doing well. He just got extubated. We are going to continue to monitor him in the Critical Care Unit for today. Hopefully, transfer him out in the morning, if he continues to remain stable. cc: Vincent Cortez MD
[2020-01-23] MEDS ORDERED: MORPHINE IV PRN (13:18)
--- NOTE | 2020-01-23 22:07 | PULMONOLOGY PROGRESS NOTE ---
DATE: 01/23/2020 SUBJECTIVE: The patient is arousable to alert. He will follow commands. He was placed on a spontaneous breathing trial by this practitioner and followed for greater than 30 minutes. He was re-evaluated later and found to be acceptable for extubation. The patient was extubated. I re- evaluated him later in the afternoon, and he was doing well and someone had initiated a diet, which he was tolerating. OBJECTIVE: Vital Signs: The patient has been afebrile for the last 24 hours. Blood pressure 95/76, heart rate 82, respiratory rate 24, oxygen saturation 92%. HEENT: Pupils are equal and reactive. Oropharynx appears clear. Neck: Supple. Chest: Reveals prolonged expiratory phase with distant wheezing. Cardiac exam: S1, S2. Abdomen: Soft. Extremities: Without edema. LABORATORY DATA: Arterial blood gas reveals pH 7.37, pCO2 of 46, pO2 of 129. IMPRESSION: A 39-year-old with: 1. Status asthmaticus. 2. Acute hypoxemic respiratory failure. 3. Acute hypercapnic respiratory failure. 4. Nicotine addiction with ongoing tobacco use. 5. Medical noncompliance. PLAN: 1. Extubate (this has been completed). 2. Continue current steroids, nebulizers and antibiotics. 3. Begin morphine weaning. 4. Encourage smoking cessation and medication compliance. cc: Yuriy Cloud MD
[2020-01-24] MEDS: SOLU-MEDROL IV SCH ×2 (00:17→06:39)
[2020-01-24] MEDS: DUONEB (A & A) INH SCH ×6 (03:15→23:59)
[2020-01-24 05:28] LABS: HEMATOCRIT 45.6 % (42.0-52.0); HEMOGLOBIN 14.7 g/dL (14.0-18.0); LYMPH# 0.64 X1000 (1.2-3.4); LYMPH% 5.3 % (20.5-51.1); MCH 28.6 PG (27-31); MCHC 32.2 g/dL (33-37); MCV 88.7 FL (81-99); MONO# 0.28 X1000 (0.11-0.59); MONO% 2.3 % (1.7-9.3); MPV 12.1 FL (7.4-10.4); NEUT# 11.19 X1000 (1.4-6.5); NEUT% 92.4 % (42.2-75.2); PLT 176 X1000 (130-400); RBC 5.14 XMIL (4.7-6.1); RDW 14.4 % (11.5-14.5); WBC 12.11 X1000 (4.8-10.8)
[2020-01-24 06:10] LABS: LYMPHS 6 % (21-51); MONO 2 % (1-9); SEGS 92 % (42-75)
--- NOTE | 2020-01-24 07:04 | Diag Imaging Result Doc PS360 ---
EXAM: CHEST-PORTABLE HISTORY: abnormal exam TECHNIQUE: Single view COMPARISON: 01/22/2020 FINDINGS: The lungs are hyperexpanded. The heart is not enlarged. The vessels are small. There are no infiltrates. No effusion identified. The endotracheal tube has been removed and the nasogastric tube has been removed. IMPRESSION: Emphysema Electronically signed by Tereso Christensen 01/24/2020 7:01 AM
[2020-01-24] MEDS: PROTONIX IV SCH (09:04)
[2020-01-24] MEDS: LEVAQUIN 500 MG/D5W 500 MG/100 ML IVPB IV SCH (09:05)
[2020-01-24] MEDS: PREDNISONE PO SCH (09:05)
[2020-01-24] MEDS: LOVENOX SUBQ SCH (09:05)
--- NOTE | 2020-01-24 15:14 | PROGRESS NOTE ---
DATE: 01/24/2020 I have seen and examined Mr. Mcclure today. Mr. Mcclure refers to be doing well. Denies any new complaints. He was successfully extubated yesterday. He is currently not using any supplemental oxygen and he is saturating well. OBJECTIVE: Vital signs: Blood pressure is 121/69, pulse of 84, respiration is 14, temperature is 98.3 degrees. Patient was saturating 94% on room air. General: Mr. Mcclure is a 39-year-old male. He was in bed, no distress. HEENT: Mucosa is pink and moist. Anicteric. Acyanotic. Neck: Supple. Chest: Good air entry bilateral. There is some faint wheezing in the posterior lung devi. Otherwise, there was no retraction and no accessory muscle use. Cardiovascular: Regular rate and rhythm. No murmurs, no rubs, no gallops. GI: Abdomen was soft, nontender. Bowel sounds present. TEACHERS ASSISTANT: Patient was awake, alert, oriented. There is no focal neurological deficit. LABORATORY DATA: CBC is reviewed and is unremarkable except for mild leukocytosis. There is no chemistry for this morning. So far, urine culture is negative. Blood cultures have been 48 hours negative. Influenza is also negative. MEDICATIONS: Have all been reviewed. We have discontinued the Clinimix. I have also discontinued the methylprednisolone and switched it to oral prednisone. ASSESSMENT: 1. Acute hypoxemic respiratory failure secondary to severe asthma. Patient was initially intubated. He was successfully extubated yesterday. He seems to be doing well. He is currently off supplemental oxygen. He is doing well. 2. Status asthmaticus on presentation, improved. We are going to continue with the patient nebulizations p.r.n. inhaler and steroid inhalers for the disease control. 3. Asthma with poor outpatient control. Patient has been advised. 4. Chronic pain syndrome. The patient is on multiple pain medications at home. He has been advised to follow up with his primary care to review the need for all of these medications. So, in general, I think Mr. Mcclure is doing well. He is going to be transferred from the ICU to the medical floor. We will start him back on his control inhaler as well as p.r.n. albuterol. We will get physical therapy to work him today. If he remains fairly stable, I think he will be okay for discharge later on today or first thing in the morning. cc: Vincent Cortez MD
--- NOTE | 2020-01-24 15:43 | PULMONOLOGY PROGRESS NOTE ---
DATE: 01/24/2020 SUBJECTIVE: The patient is awake and alert. He is doing well off mechanical ventilation. OBJECTIVE: Vital Signs: The patient has been afebrile for the last 24 hours. Blood pressure 121/69, heart rate 84, respiratory rate 18, oxygen saturation 94%. HEENT: Pupils are equal and reactive. Oropharynx is clear. neck: Neck is supple. pulmonary: Chest reveals prolonged expiratory phase with minimal wheeze. Cardiac: S1-S2. abdomen: Abdomen is soft. Extremities: Extremities are without edema. IMPRESSION: A 39-year-old with: 1. Status asthmatic status post intubation and subsequent extubation. 2. Acute hypoxemic and acute hypercapnic respiratory failure. 3. Nicotine addiction with ongoing tobacco use. 4. Medical noncompliance. DISCUSSION: A 39-year-old with problems outlined above. The patient is doing well off mechanical ventilation. He has no increased work of breathing. He is a good candidate for transfer to the floor. We had a discussion about his noncompliance with medication regimen along with ongoing tobacco use. At age 39, he should be making better decisions. PLAN: 1. Agree with transfer to the floor. 2. Restart maintenance medications. 3. Discontinue tobacco use. cc: Yuriy Cloud MD
[2020-01-24] MEDS ORDERED: SUBOXONE 8 MG/2 MG FILM SL SCH (23:33)
[2020-01-25] MEDS ORDERED: SUBOXONE 8 MG/2 MG FILM SL SCH (00:43)
[2020-01-25] MEDS: SUBOXONE 8 MG/2 MG FILM SL SCH ×2 (01:05→13:11)
[2020-01-25] MEDS: DUONEB (A & A) INH SCH ×4 (03:52→15:51)
[2020-01-25] MEDS: PROTONIX IV SCH (06:30)
[2020-01-25] MEDS: PREDNISONE PO SCH (08:38)
[2020-01-25] MEDS: LOVENOX SUBQ SCH (08:39)
[2020-01-25] MEDS: LEVAQUIN 500 MG/D5W 500 MG/100 ML IVPB IV SCH (08:39)
--- NOTE | 2020-01-25 14:54 | PULMONOLOGY PROGRESS NOTE ---
DATE: 01/25/2020 SUBJECTIVE: The patient is awake, alert and conversant. He reports he feels significantly better. OBJECTIVE: Vital Signs: The patient has been afebrile for the last 24 hours. Blood pressure 105/60, heart rate 94, respiratory rate 14, oxygen saturation 97%. HEENT: Pupils are equal and reactive. Oropharynx appears clear. Neck: Neck is supple. Chest: Reveals good air entry bilaterally with mild bilateral wheeze. Cardiac exam: S1, S2. Abdomen: Soft. Extremities: Reveals some edema of the right forearm. IMPRESSION: A 39-year-old with: 1. Status asthmaticus requiring intubation. 2. Acute hypoxemic and hypercapnic respiratory failure. 3. Nicotine addiction with ongoing tobacco use. 4. Medical noncompliance. RECOMMENDATIONS: 1. Discontinue the 2 IVs in the right arm given the mild swelling. 2. Educate about the importance of smoking cessation. 3. Anticipate discharge home soon with a steroid Dosepak, antibiotics, and reinstitution of his maintenance medication. cc: Yuriy Cloud MD
[2020-01-25 16:06] VITALS: BP 112/68
--- NOTE | 2020-01-25 17:07 | DISCHARGE SUMMARY ---
ADMISSION DATE: 01/22/2020 DISCHARGE DATE: 01/25/2020 ADDENDUM: DISCHARGE DIAGNOSIS: Acute asthma exacerbation. The patient is seen the day of discharge. No wheezing. We have not been tracking peak flows. I do not have a peak flow on him, but his breathing is improved. His asthma exacerbation was severe enough he had to be intubated, but he seems to be doing fine at this point, presumably he had a coronavirus test, I am sure, which was negative. In any case we will discharge him today on antibiotics and a steroid taper. He has inhalers. He reports having oxygen at home, although I do not think at this point he needs it. His home medications have not been reconciled, unfortunately, but I will make sure he continues albuterol inhaler. He probably needs some sort of long-acting. He is on mometasone and we will do a prednisone taper and Levaquin. cc: Sukhi Hester MD
--- NOTE | 2020-01-25 17:13 | DISCHARGE SUMMARY ---
ADMISSION DATE: 01/22/2020 DISCHARGE DATE: 01/25/2020 CONSULTATION: Pulmonology. ADMISSION DIAGNOSES: 1. Acute respiratory failure, maintained on ventilator support. 2. Bronchial asthma extubation. 3. Probable urinary tract infection. 4. Chronic pain syndrome. DISCHARGE DIAGNOSES: 1. Acute hypoxemic respiratory failure secondary to severe asthma, initially intubated and successfully extubated. 2. Status asthmaticus on presentation, improved. 3. Asthma with poor outpatient control. 4. Chronic pain syndrome. SUMMARY OF FINDINGS: This is a 39-year-old male who presented to the ER with complaints of shortness of breath, noted to be in acute respiratory failure with subsequent intubation, placed on mechanical ventilation in the emergency room and sedated, transferred initially to the intensive care unit. Pulmonology was consulted. He was successfully extubated. His chest x-ray showed an impression of emphysema on 01/24/2020. He was educated on the importance of smoking cessation and felt per pulmonology and attending that it was safe to discharge him home. DISCHARGE MEDICATIONS: Include Ventolin inhaler 4 times daily, Levaquin 500 mg p.o. daily #7 with no refills, prednisone taper as directed. FOLLOW-UP: He will need to follow up with the primary care physician. He is to remain quarantined and self isolated for the next 14 days. All discharge instructions were reviewed with the patient and he verbalized understanding. TIME SPENT: A 35 minute discharge. Dictated by ADAN Malik for Sukhi Hester MD cc: ADAN Malik MD
== END 2020-01-25 18:26 | disposition home or self-care (01) | DRG 208 ==
LOC: ED 04:16 → ICU 04:17 → SUATTDRO 04:17 → 3N 01-24 11:00
PROVIDERS: ATTEND Internal Medicine